=== PATIENT | female | born 1955 | race Caucasian/White ===

== ENCOUNTER → 2017-12-14 11:58 | Outpatient (CLI) | payer OTHER, SELFPAY ==
--- NOTE | 2017-12-14 12:04 | BI_ITS ---
MAMMOGRAPHY - BILATERAL SCREENING 3-D CARLOS SYNTHESIS REASON FOR EXAM: Female, 62 years old. Bilateral Screening 3-D tomosynthesis PERTINENT HISTORY: Aunt with breast cancer.. TECHNIQUE: 2-D mammograms and 3-D Carlos synthesis of the breast (s) were performed. CAD was performed. COMPARISON: 03/16/2016 FINDINGS: The breast composition is composed of scattered fibroglandular density. Scattered benign calcifications are seen. No dense spiculated masses or suspicious microcalcifications are identified. No architectural distortion is identified. There is no skin thickening or retraction. There has been no significant change since the prior study. BI/SCREENING MAMM (CAD), BILAT IMPRESSION: No mammographic signs of malignancy. Routine yearly mammograms recommended. ASSESSMENT CATEGORY: BIRADS Category 1: Negative. A letter regarding these results will be sent to the patient by the facility within 30 days. FOLLOW UP RECOMMENDATION: Yearly follow up mammogram recommended. (A) Approximately 10% of breast cancers are not detected by mammography. A normal mammogram should not delay biopsy of a clinically suspicious abnormality. Electronically Signed: Herb Isabel MD at 14:19 EDT , Service support ,
== END ==
PROVIDERS: Family Provider Nurse Practitioner; PCP Nurse Practitioner; Visit Provider Obstetrics & Gynecology
DX: Z12.31 Encounter for screening mammogram for malignant neoplasm of breast (principal)
CPT/HCPCS: 77063; 77067

== ENCOUNTER → 2018-03-12 16:08 | Outpatient (CLI) | payer OTHER, SELFPAY | PROVIDERS: Referring Provider Physician Assistant; Visit Provider Physician Assistant | DX: L08.9 Local infection of the skin and subcutaneous tissue, unspecified (principal); L72.0 Epidermal cyst; L40.0 Psoriasis vulgaris | CPT/HCPCS: 87070; 87077; 87186; 87205 ==

== ENCOUNTER 2018-08-07 12:06 | Day surgery (SDC) | payer OTHER, SELFPAY ==
--- NOTE | 2018-08-01 10:23 | EKG12_ITS ---
Test Reason : PREOP Blood Pressure : / mmHG Vent. Rate : 058 BPM Atrial Rate : 058 BPM P-R Int : 168 ms QRS Dur : 084 ms QT Int : 436 ms P-R-T Axes : 044 035 037 degrees QTc Int : 428 ms Sinus bradycardia Otherwise normal ECG Confirmed by DERECK JIMENEZ, YARELI ([id number]), online content editor ENRIQUETA FALK ([id number]) on 08/02/2018 8:35:18 AM Referred By: Alma Fournier Confirmed By:YARELI HARDEN MD
[2018-08-01 10:29] LABS: Hematocrit 44.5 % (37-47); Mean Corp Hgb Conc 31.5 g/gl (32-36); Mean Corpuscular Volume 85.7 fL (81-99); Mean Platelet Vol. 8.8 fl (6.2-12.0); Platelet Count 215 K/mm3 (150-450); RBC Distribution Width CV 15.7 % (11.6-14.6); RBC Distribution Width SD 49.9 fl (35.1-43.9); Red Blood Count 5.19 M/mm3 (4.2-5.4); White Blood Count 5.1 K/mm3 (4.4-11.0)
[2018-08-01 10:30] LABS: Scan Indicated on CBC? Y/N NO
[2018-08-01 10:36] LABS: Prothrombin Time (Protime)PT. 12.7 SECONDS (11.7-14.9)
[2018-08-01 10:37] LABS: Partial Thromboplast Time 28.1 Seconds (24.1-36.2)
[2018-08-01 11:10] LABS: AST(SGOT) 23 U/L (15-37); Alanine Aminotransfer ALT/SGPT 26 U/L (13-56); Albumin, Serum 3.8 g/dL (3.2-5.0); Alkaline Phosphatase 87 U/L (45-117); Anion Gap 5 (5-15); BUN 13 mg/dL (7-18); BUN/Creat Ratio 14.1 RATIO (10-20); Bilirubin, Direct 0.15 mg/dL (0.00-0.30); Calcium,Total 8.7 mg/dL (8.5-10.1); Chloride 106 mmol/L (98-107); Creatinine, Serum 0.92 mg/dL (0.55-1.02); EST Glomerular Filtration Rate 65 mL/min (>60); Est Glom Filt Rate - Afr Amer 79 mL/min (>60); Globulin 3.6 g/dL (2.2-4.2); Glucose 99 mg/dL (74-106); Potassium 4.1 mmol/L (3.5-5.1); Protein, Total 7.4 g/dL (6.4-8.2); Sodium Level 141 mmol/L (136-145)
--- NOTE | 2018-08-02 04:52 | HP.PCM_ITS ---
History and Physical Date of Admission: 08/07/18 Name: SVETLANA JHAVERI Age: 62 Date of : 1955 PREOPERATIVE HISTORY AND PHYSICAL: On 08/01/2018, Svetlana Jhaveri, a 62 year old female 3 0 5 0 3, presented for: -- Pre-Op Svetlana is here today for her pre op appointment. Patient is scheduled for LAVH/BSO posterior repair 08/07/2018. Patient had PAT phone call from [facility] this morning prior to appointment in this office. Consents reviewed with patient and signed. Here for preop appt : planned LAVH, BSO. posterior repair and possible anterior repair. She has been on HRT and had some bleeding after forgetting to take pill. Prior EMB: Simple hyperplasia without atypia at D and C done in 2018 She has a rectocele. Minimal uterine prolapse. Prior h/o stable ovarian vs paratubal cyst. Has questions about HRT after surgery , whether to continue estradiol vs discontinue this medication. Reviewed options. States recent trial and discontinuation of Otezla for her psoriasis, due to allergic reaction. EB ALLERGIES: Otezla and Rash MEDICATIONS HISTORY: Current medications prescribed by our practice are: 1. clobetasol 0.05 % shampoo, Apply thinly to affected area daily as directed 2. estradiol 0.5 mg tablet, 1 PO QD 4. Prometrium 200 mg capsule, 1 po daily Patient is also takin. clobetasol 0.05 % topical cream, As Directed 2. Zantac 150 mg tablet, daily PAST HISTORY: Breast/Ovarian/Colon Cancers - aunt breast ca, cousins ovarian ca, daughter ovarian Infections - none Illnesses - no serious past illnesses Accidents - no injuries of consequence History of Abnormal PAPS - Denies Hospitalizations - see surgery Shingles; SURGICAL HISTORY: 1. 07/07/[address]Dan Orellana 2. 07/07/2003 laparoscopic BTO Alma Fournier M.D. 3. Tonsillectomy and adenoids at age 38 4. Laparoscopy, lap 5. 03/07/2017 Hysteroscopy, D and C Alma Fournier M.D. 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 Rectocele 2. Endometrial Hyperplasia, Unspecified 3. Postmenopausal Bleeding 4. Hormone Replacement Therapy (postmenopausal) 5. Unspecified Ovarian Cyst, Left Side PLAN BY DIAGNOSIS: 1. Postmenopausal Bleeding Prior PATH: simple hyperplasia without atypia. Advised of small chance of progression to endometrial cancer with no atypia and only simple hyperplasia, dose of Prometrium increased. Additional bleed after forgetting pill Prefers now to proceed with hysterectomy and BSO. R,B,A of MICHAEL DEL REAL reviewed. All questions answered to her satsfaction. Consents signed and on chart. Reviewed anticipated preop, operative and postop recovery including activity restrictions. RTO in 2 wk for postop follow up appt. The visit was approximately 20 minutes in length with most of the time spent in discussion and counseling. 2. Unspecified Ovarian Cyst, Left Side Simple appearing follicle/cyst noted at L ovary. No free fluid CT done 11/30/16 through ED when Svetlana had dx of shingles showed: 2.3 cm L adnexal cyst then also. Stable finding. Plans BSO. 3. Hormone Replacement Therapy (postmenopausal) After hysterectomy, may elect to stop HRT. If prefers to continue, recommend estradiol only as no progesterone needed Will consider options further. Discussed wean off ERT Estradiol 0.5 mg daily and if no recurrence in symptoms, discontinue med 4. Rectocele Redundancy of vaginal fong on exam. Plans posterior repair. Possible anterior repair to be determined at time of surgery Reviewed R,B,alternatives of posterior repair (possible anterior repair)
[2018-08-07] VITALS (14 sets, daily range): BP systolic 94–136; BP diastolic 51–75; PULSE 48–88; RESP 14–18; TEMP 35.8–37.5; O2SAT 93–100; BMI 37.5
--- NOTE | 2018-08-07 13:36 | PCM.DC.VHY ---
Discharge Diet: No Restrictions Discharge Activity: May not drive while taking narcotic pain medications., May Shower, May Take a Tub Bath Return to work on:: 09/23/18 May resume sexual activity in: 4-6 weeks Lifting Restrictions: Limit to 20 lbs or less for 4 - 6 wk to allow healing Call your doctor if you observe: Fever of 101 or Higher, Using more than one pad per hour, Chest pain, Calf discomfort, Uncontrolled pain Change Dressing in (Days):: 7 Remove Dressing in (days):: 7 Cleanse incision/area with: Soap & Water, Keep Dressing Clean & Dry Allergies/Adverse Reactions: Allergies apremilast [From Otezla] Allergy (Verified 08/01/18 08:35) Rash Medications to take at Discharge Estradiol [Estrace] 0.5 mg PO DAILY 11/30/14 Ranitidine [Zantac] 150 mg PO DAILY PRN 12/03/14 Cholecalciferol (VIT D3) [Vitamin D3] 5,000 unit PO DAILY 02/28/17 Aspirin [Aspirin, Baby] 81 mg PO DAILY@0800 08/01/18 Docusate Sodium [Colace] 100 mg PO BID #30 capsule 08/07/18 Naproxen [Naprosyn] 250 - 500 mg PO TID PRN PRN #30 tablet 08/07/18 Oxycodone [Oxyir] 5 - 10 mg PO Q6H PRN PRN 7 Days #20 tablet 08/07/18 Polyethylene Glycol 3350 [Miralax] 17 gm PO DAILY PRN #14 packet 08/07/18 The following prescriptions were given: Oxycodone [Oxyir] 5 - 10 mg PO Q6H PRN PRN 7 Days #20 tablet PRN Reason: Mod-Severe Pain (4-10/10) Naproxen [Naprosyn] 250 - 500 mg PO TID PRN PRN #30 tablet PRN Reason: Mild-Mod Pain (1-5/10) Polyethylene Glycol 3350 [Miralax] 17 gm PO DAILY PRN #14 packet PRN Reason: Constipation Docusate Sodium [Colace] 100 mg PO BID #30 capsule Orders to be completed after discharge: Type & Screen Time Frame: 08/01/18, Facility: [facility], Location: Laboratory 12 Lead EKG [CVS] Time Frame: 08/01/18, Facility: [facility], Location: Cardiovascular Services Partial Thromboplast Time Time Frame: 08/01/18, Location: Laboratory Basic Metabolic Profile (BMP) Time Frame: 08/01/18, Location: Laboratory CBC-Complete Blood Cnt No Diff Time Frame: 08/01/18, Location: Laboratory Liver Profile Time Frame: 08/01/18, Location: Laboratory Prothrombin Time w/INR Time Frame: 08/01/18, Location: Laboratory Primary Care Physician: Kristan Soni NP-C [Primary Care Provider] - Test Results: Test results from this visit will be discussed in further detail at your follow-up appointment, if applicable. Please Follow Up With: Alma Fournier MD - [phone] When: in 2 wk for postop appointment
--- NOTE | 2018-08-07 13:42 | DCINST_ITS ---
Discharge Diet: No Restrictions Discharge Activity: May not drive while taking narcotic pain medications., May Shower, May Take a Tub Bath Return to work on:: 09/23/18 May resume sexual activity in: 4-6 weeks Lifting Restrictions: Limit to 20 lbs or less for 4 - 6 wk to allow healing Call your doctor if you observe: Fever of 101 or Higher, Using more than one pad per hour, Chest pain, Calf discomfort, Uncontrolled pain Change Dressing in (Days):: 7 Remove Dressing in (days):: 7 Cleanse incision/area with: Soap & Water, Keep Dressing Clean & Dry Allergies/Adverse Reactions: Allergies apremilast [From Otezla] Allergy (Verified 08/01/18 08:35) Rash Medications to take at Discharge Estradiol [Estrace] 0.5 mg PO DAILY 11/30/14 Ranitidine [Zantac] 150 mg PO DAILY PRN 12/03/14 Cholecalciferol (VIT D3) [Vitamin D3] 5,000 unit PO DAILY 02/28/17 Aspirin [Aspirin, Baby] 81 mg PO DAILY@0800 08/01/18 Docusate Sodium [Colace] 100 mg PO BID #30 capsule 08/07/18 Naproxen [Naprosyn] 250 - 500 mg PO TID PRN PRN #30 tablet 08/07/18 Oxycodone [Oxyir] 5 - 10 mg PO Q6H PRN PRN 7 Days #20 tablet 08/07/18 Polyethylene Glycol 3350 [Miralax] 17 gm PO DAILY PRN #14 packet 08/07/18 The following prescriptions were given: Oxycodone [Oxyir] 5 - 10 mg PO Q6H PRN PRN 7 Days #20 tablet PRN Reason: Mod-Severe Pain (4-10/10) Naproxen [Naprosyn] 250 - 500 mg PO TID PRN PRN #30 tablet PRN Reason: Mild-Mod Pain (1-5/10) Polyethylene Glycol 3350 [Miralax] 17 gm PO DAILY PRN #14 packet PRN Reason: Constipation Docusate Sodium [Colace] 100 mg PO BID #30 capsule Orders to be completed after discharge: Type & Screen Time Frame: 08/01/18, Facility: [facility], Location: Laboratory 12 Lead EKG [CVS] Time Frame: 08/01/18, Facility: [facility], Location: Cardiovascular Services Partial Thromboplast Time Time Frame: 08/01/18, Location: Laboratory Basic Metabolic Profile (BMP) Time Frame: 08/01/18, Location: Laboratory CBC-Complete Blood Cnt No Diff Time Frame: 08/01/18, Location: Laboratory Liver Profile Time Frame: 08/01/18, Location: Laboratory Prothrombin Time w/INR Time Frame: 08/01/18, Location: Laboratory Primary Care Physician: Kristan Soni NP-C [Primary Care Provider] - Test Results: Test results from this visit will be discussed in further detail at your follow- up appointment, if applicable. Please Follow Up With: Alma Fournier MD - [phone] When: in 2 wk for postop appointment
--- NOTE | 2018-08-07 13:51 | PCM.OPRPT ---
Report of Operation Date of Procedure: 08/07/18 Pre-Operative Diagnosis: Postmenopausal bleeding. Persistent (stable adnexal cyst). Rectocele Post-Operative Diagnosis: Same Surgery/Procedure Performed:: LAVH, BSO, posterior repair Description of Surgical Findings:: Urine output: 130 cc Irrigation: 400 cc Findings: On exam under anesthesia, the cervix appears well supported, minimal descensus. A large rectocele was noted, prolapsing through the introitus. At Laparoscopy: the uterus is normal appearing. There are normal appearing fallopian tubes and ovaries bilaterally. Gross inspection of the bowel , omentum and liver edge are WNL. PATH: Uterus, bilateral fallopian tubes and ovaries, and strips of vaginal epithelium. Narrative account: After the risks, benefits and alternatives of the procedure were reviewed with the patient , informed consent was obtained. The patient was taken to the Operating room with an IV running . She was positioned in the dorsal supine position on the operating table and given general anesthesia. Once asleep she was positioned to the dorsal lithotomy position with the arms tucked at the sides and prepped and draped in the usual sterile fashion. A Horne catheter was inserted to drain the bladder. The weighted speculum was placed into the vagina and a single tooth tenaculum was placed at the cervix. A Taryn cannula was inserted into the cervix and secured into placed with the single - toothed tenaculum. Attention was then turned to the anterior abdominal wall. the treadle cut off saw operator's gloved were changed and skin incisions were created at the infraumbilical and suprapubic skin and at a point approximately [facility] between the suprapubic and infraumbilical skin incisions. Local anesthesia was used to infiltrate the skin where the trocar incision sites were created. A vertical 5 mm infraumbilical skin incision , a transverse 5 mm suprapubic incision and an transverse 5 mm midline incision were created. A Veress needle was inserted in to the peritoneal cavity at the infraumbilical skin incision while maintaining upward traction of the anterior abdominal wall at the umbilicus. There was free drop of saline, free flow of CO2 and low opening pressure noted. Once the intraabdominal pressure had reached approximately 15 mm HG, the Veress needle was removed and a bladeless 5 mm trocar was inserted into the peritoneal cavity. Correct placement was confirmed using the laparoscope. Under direct visualization the other two 5 mm bladeless trocars were inserted into the peritoneal cavity. The fallopian tubes and ovaries were retracted medially and using a LigaSure device the infundibulopelvic ligament was divided at each side of the uterus. The broad ligament was then divided down to the level of the round ligament on both sides. At this point the laparoscopic portion of the case was completed. The trocars were left in place, but the instruments were removed and gas turned off. A sterile drape was used to cover the abdomen. Attention was then turned to the vaginal portion of the case. The Taryn cannula was removed and the single toothed tenaculum repositioned on the cervix. The cervical mucosal was then incised circumferentially using a knife while retracting the large rectocele. Neither the anterior or posterior cul de sac was immediately entered. A curved Cydney clamp was applied at both sides for hemostasis. The pedicles were secured, divided and suture ligated and tagged for later identification. Dissection then was initiated at the anterior cervix to enter the anterior cul se sac. The posterior cul de sac was entered eventually by sharp dissection with Eden scissors and a weighted speculum was placed into the posterior cul se sac. The uterosacral ligaments were clamped bilaterally with curved Cydney clamps and the pedicles divided and suture ligated and tagged (along with the first tagged pedicles into hemostats present) for later identification. The anterior cul de sac peritoneum was then entered by sharp dissection and a narrow Fauzia retractor was placed into the anterior cul de sac to retract the bladder out of harm's way for the remainder of the case. Next the cardinal ligament was clamped bilaterally and divided and suture ligated. Adequate hemostasis of the pedicles were noted. The uterine arteries were clamped bilaterally , divided and suture ligated. There was continued bleeding noted (of the cuff both anterior and posterior). Dissection then continued along each side of the uterus maintaining close approximation to the uterus. Each pedicle was secured with a Cdyney clamp, divided and suture ligated until ultimately the uterine fundus was reached. The superior pedicles on each side were secured with a curved Cydney clamp and the uterus with attached fallopian tubes and ovaries was surgically amputated and set aside. The superior pedicle was then suture ligated, then free tied and tagged for identification. The superior pedicles were dry. There was bleeding noted along the posterior vaginal cuff . The posterior vaginal cuff was run, reapproximating the peritoneum and posterior vaginal epithelium with a running locked suture of 1-0 Vicryl. Hemostasis improved. Several areas along the vaginal cuff were overseen with figure of with stitches of 1-0 Vicryl. There was still bleeding noted. The peritoneum was then closed with a running purse string suture of 1 Vicryl, incorporating the superior pedicles and uterosacral ligament tags. The tags appeared dry and the bleeding appeared to be external to the closed peritoneum. The vaginal cuff was then reapproximated using interrupted and figure of eight stitches of 1 Vicryl. Excellent hemostasis was noted at the vaginal cuff. At this point, Dr Andrew had been called to assist due to persistent bleeding present during the vaginal cuff closure and given the EBL consideration was given to potentially having to proceed to laparotomy. A second look laparoscopy was being performed as Dr. Andrew arrived and scrubbed in: excellent hemostasis was noted at all pedicles and at the vaginal cuff. The pelvis and abdomen were irrigated with approximately 400 cc of normal saline. Olvin was sprayed along the cuff and pedicles for additional hemostasis. Excellent hemostasis was noted . The pneumoperitoneum was reduced and all instruments and trocars were removed. The skin incisions were closed with 4-0 Monocryl in a subcuticular fashion. Sterile dressings were applied. (Dermabond and op sites). After hemostasis was assured. The posterior repair was then performed. A triangular piece of tissue was excised at the posterior vagina / perineal body and the posterior vaginal longitudinal incision was then created using Metzenbaum scissors. The linear incision was carried from the posterior introitus to approx 1 cm from the vaginal cuff repair. The vaginal epithelium was then dissected from the underlying rectovaginal septum. Lesly plication stitches of 1-0 Vicryl were then placed reducing the rectocele. The posterior vaginal mucosa was trimmed and the linear incision closed with 2-0 chromic in a running locked fashion. Vaginal packing was then inserted: 1 iodoform gauze Excellent hemostasis was noted. The Horne was attached to the Horne bag and clear yellow urine returned. The patient was returned to dorsal supine position and awakened from general anesthesia. She was then transferred to the recovery room bed in stable condition after tolerating the procedure well. Sponge, lap, needle and instrument counts correct times two. Medications given preop and intraoperatively included: Cefotetan 2 gm IV was given community relations rep to the operating room , 10 cc of 1/2 % Marcaine with epinephrine was used as a subcutaneous injection at the trocar skin incision sites, and Toradol 30 mg IV x one was given. For a complete listing of medications given preop and intraoperatively, please see the anesthesia record. manager practice: [facility]aud[facility] - Kenia Harding RN manager practice: Kell Mora manager practice: Sheryl Parsons Type of Anesthesia:: General - and Dr. Jacobs Anesthesiologist: Beto Naranjo Specimen's removed: Uterus, cervix, Bilateral fallopian tubes and ovaries. Vaginal epithelium Drains: Horne Estimated Blood Loss (mL): 1120 Fluids Replaced: LR - Complications none - Admit VTE Documentation VTE Present on Admission: No VTE Mechan Device Prophylaxis: SCD's VTE Pharm Prophylaxis ordered?: Yes
--- NOTE | 2018-08-07 14:00 | HYST_PTH ---
PATIENT: BEULAH NICHOLS [place] [facility] [id number] AGE/SX: 62/F ROOM: RE08/07/[address]: Dr. Alma Fournier MD : [id number] BED: DIS: 08/08/2018 SPEC #: [id number] RECD: 08/07/18 16:49 STATUS: DOM RECelina #: [id number] NANCY: 08/07/18 14:[address]: Alma Fournier DEPT: SURGICAL PATHOLOGY RECD BY: Sidney Nichols ENTERED: 08/08/18 10:22 SP TYPE: HYSTERECT OTHR DR: Kristan Soni, WOOL HAT FORMING MACHINE TENDER-C Tissues: Uterus, NOS Procedures: Surgery Specimen Level II Surgery Specimen Level V HEADER OPERATION: Laparoscopic assisted vaginal hysterectomy, bilateral salpingectomy PRE-OP DIAGNOSIS: Rectocele; endometrial hyperplasia; postmenopausal bleeding; hormone replacement therapy (postmenopausal); left ovarian cyst TISSUE SUBMITTED: Uterus, bilateral fallopian tubes and ovaries and vaginal mucosa MICROSCOPIC DIAGNOSIS Uterus, hysterectomy: Cervix - nabothian cysts, squamous metaplasia and mild chronic inflammation. Endometrium - simple hyperplasia without atypia. Myometrium - extensive adenomyosis. Right ovary - corpora albicantia. Right fallopian tube - no significant pathologic change. 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 Left fallopian tube - no significant pathologic change. Vaginal mucosa, repair: Mild chronic inflammation. AM:nita 08/09/18 COMMENT Case has been reviewed in consultation with Dr. Daniels who concurs with the above diagnosis. IDC:SJ MICROSCOPIC DESCRIPTION Slides are reviewed. GROSS DESCRIPTION Received in fixative is one container labeled with the patient's name and designated uterus, bilateral tubes, ovary and vaginal mucosa. The specimen consists of a hysterectomy specimen consisting of uterus with cervix, attached bilateral fallopian tubes and ovary and detached pieces of mucosal tissue. The uterus with cervix weighs 95 gm and measures 11 x 6 x 4 cm. The serosal surface is cowart, glistening. The ectocervical mucosa is focally congested. The external os is oval in contour. The endocervical canal measures 4 cm in length and the endocervical mucosa is cowart, glistening and unremarkable. Sections of cervix reveal two cysts filled with mucoid material. The triangular endometrial cavity measures 5.5 cm in length and up to 2 cm in width. The endometrium is cowart, glistening without any mass lesion and measures <0.1 cm in thickness. Sections of the myometrial wall do not reveal any mass lesion and it measures up to 2 cm in thickness. Sections of the myometrial wall reveal focal trabeculated cut surface suspicious for adenomyosis. The right fallopian tube measures 6 cm in length and 0.5 cm in diameter. The fimbrial end is identified. The fallopian tube shows a Filshie clip in the middle portion which appears intact consistent with previous tubal ligation. Sections reveal unremarkable cut surfaces. The right ovary measures 2.2 x 1.5 x 0.8 cm. Sections reveal unremarkable cut surfaces. No tubo-ovarian adhesions are identified. The left fallopian tube is similar appearance to right and measures 5 cm in length and 0.5 cm in diameter. A Filshie clip is also noted in the middle consistent with previous tubal occlusion. The soft to cystic left ovary measures 4 x 2.5 x 2.5 cm. Sections reveal a cyst filled with clear fluid measuring 2.5 cm in greatest dimension. The cyst wall is smooth without any papillation and measures <0.1 cm in greatest dimension. Also present in the container are two pieces of cowart mucosal tissue measuring in aggregate 6 x 3.5 x 0.5 cm. No mucosal lesion is identified. Instrumentation martinez are noted. Assistant Store Manager Trainee sections are submitted in ten cassettes as follows: 1 - anterior cervix, 2 - posterior cervix, 3 & 4 - anterior uterine wall, 5 & 6 - posterior uterine wall, 7 - right fallopian tube and ovary, 8 - left fallopian tube and ovary, 9 - left ovary, cyst, 10 - mucosal tissue. / CHACORTA:nita 08/08/18 TC:5 CPT: 25277, [id number]
[2018-08-07] MEDS: Bupiv/Epi 0.5% Mpf 30 ML Vial (14:05)
[2018-08-07] MEDS: Lactated Ringers 1,000 ML 125 ML IV ×2 (17:52→23:47)
[2018-08-07] MEDS: 0.9% NaCl Peripheral Flush Adult/Peds IV ×2 (17:55→20:36)
[2018-08-07 18:16] LABS: Hemoglobin 11.7 g/dl (12.0-15.0)
[2018-08-07] MEDS: Ketorolac 30 MG/ML Syringe IV (20:36)
[2018-08-07] MEDS: Docusate Sodium 100 MG Capsule PO (21:00)
[2018-08-07 21:52] LABS: Absolute Lymphocyte Count 1.23 X10^3/ul (0.83-4.51); Basophil# 0.01 X10^3/uL; Basophil% 0.1 % (0-1); Eosinophil# 0.01 X10^3/uL; Eosinophils% 0.1 % (0-5); Hematocrit 35.7 % (37-47); Hemoglobin 11.3 g/dl (12.0-15.0); Lymphocyte # 1.23 X10^3/ul (4.0); Lymphocyte % 10.5 % (19-41); Mean Corp Hgb Conc 31.7 g/gl (32-36); Mean Corpuscular Hgb 27.4 pg (27.0-32.0); Mean Corpuscular Volume 86.4 fL (81-99); Mean Platelet Vol. 9.3 fl (6.2-12.0); Monocyte# 0.52 X10^3/uL; Monocyte% 4.4 % (0-10); Neutrophil # 9.95 X10^3/uL (2.7-7.7); Neutrophil % 84.8 % (47-70); Platelet Count 228 K/mm3 (150-450); RBC Distribution Width CV 15.4 % (11.6-14.6); RBC Distribution Width SD 47.9 fl (35.1-43.9); Red Blood Count 4.13 M/mm3 (4.2-5.4); White Blood Count 11.7 K/mm3 (4.4-11.0)
[2018-08-07 21:53] LABS: POSITIVE COUNT NO; POSITIVE DIFFERENTIAL NO; POSITIVE MORPHOLOGY NO
[2018-08-08 02:48] VITALS: BP 111/57; PULSE 67; RESP 16; TEMP 36.3; O2SAT 98
[2018-08-08] MEDS: Ketorolac 30 MG/ML Syringe IV ×2 (02:51→08:06)
[2018-08-08] MEDS: 0.9% NaCl Peripheral Flush Adult/Peds IV (02:51)
[2018-08-08] MEDS: Lactated Ringers 500 ML 999 ML IV (03:15)
[2018-08-08 06:40] LABS: Hematocrit 30.1 % (37-47); Hemoglobin 9.4 g/dl (12.0-15.0); Mean Corp Hgb Conc 31.2 g/gl (32-36); Mean Corpuscular Hgb 27.2 pg (27.0-32.0); Mean Corpuscular Volume 87.2 fL (81-99); Mean Platelet Vol. 9.3 fl (6.2-12.0); Platelet Count 226 K/mm3 (150-450); RBC Distribution Width CV 15.5 % (11.6-14.6); RBC Distribution Width SD 48.1 fl (35.1-43.9); Red Blood Count 3.45 M/mm3 (4.2-5.4); White Blood Count 7.6 K/mm3 (4.4-11.0)
[2018-08-08 06:41] LABS: Scan Indicated on CBC? Y/N NO
[2018-08-08 06:47] LABS: Creatinine, Serum 0.86 mg/dL (0.55-1.02); EST Glomerular Filtration Rate 71 mL/min (>60); Est Glom Filt Rate - Afr Amer 86 mL/min (>60); Estimated Creatinine Clearance 67.54 ml/min
[2018-08-08 07:21] VITALS: O2SAT 93
[2018-08-08 08:00] VITALS: BP 122/61; PULSE 61; RESP 16; TEMP 36.2; O2SAT 100
[2018-08-08] MEDS: Estradiol 1 MG Tablet 0.5 MG PO (08:07)
[2018-08-08] MEDS: Aspirin 81 MG TAB.CHEW PO (08:07)
[2018-08-08] MEDS: Docusate Sodium 100 MG Capsule PO (08:08)
[2018-08-08] MEDS: Enoxaparin 40 MG/0.4 ML Syringe SC (08:08)
[2018-08-08] MEDS: Polyethylene Glycol 3350 17 GM PACKET PO (08:08)
--- NOTE | 2018-08-08 08:11 | PN_ITS ---
Subjective: POD#1 GT, BSO. Posterior repair Doing well Horne out and would like to try to void. Walking around unit well this am. Tolerated regular diet. Minimal pain 2/10 pain scale and more off to the R side. Objective: Sitting up in bed, breakfast tray on table. - Physical Exam General: Alert, Oriented x3, Cooperative, No apparent distress HEENT: Atraumatic Neck: Supple Abdomen: Soft - L/S incisions CDI., - - vaginal packing removed, minimal old drainage noted on packing. Peripad with minimal dischg. Skin: No rashes, Incision - L/S incisions CDI. Psych/Mental Status: Normal Affect Vital Signs Temp Pulse Resp BP Pulse Ox 97.3 F L 67 16 111/57 L 93 08/08/18 02:48 08/08/18 02:48 08/08/18 02:48 08/08/18 02:48 08/08/18 07:21 Oxygen Flow Rate (L/min) 2 Oxygen Delivery Method Nasal Cannula Weight: 112 kg Body Mass Index (BMI) 37.5 Intake and Output for Last 24 Hours 08/06/18 08/07/18 08/08/18 23:59 23:59 23:59 Intake Total 4790 / 4790 1530 / 1530 Output Total 455 / 455 450 / 450 Balance 4335 / 4335 1080 / 1080 Laboratory Tests Past 24 Hrs 08/01/18 08/07/18 08/07/18 10:15 18:10 21:36 WBC 11.7 H RBC 4.13 L Hgb 11.7 L 11.3 L Hct 38.0 35.7 L MCV 86.4 MCH 27.4 MCHC 31.7 L RDW 15.4 H RDW Differential 47.9 H Plt Count 228 MPV 9.3 Immature Gran % (Auto) 0.100 Neut % (Auto) 84.8 H Lymph % (Auto) 10.5 L [place] % (Auto) 4.4 Eos % (Auto) 0.1 Baso % (Auto) 0.1 Absolute Neuts (auto) 10.0 H Absolute Lymphs (auto) 1.23 Total Counted Not Reportable Creatinine Estim Creat Clear Calc Est GFR (MDRD) Af Amer Est GFR (MDRD) Non-Af Blood Type Cancelled A1 Antigen Typing Cancelled Rho(D) Type Cancelled Antibody Screen Cancelled Crossmatch See Detail 08/08/18 08/08/18 06:00 06:00 WBC 7.6 RBC 3.45 L Hgb 9.4 L Hct 30.1 L MCV 87.2 MCH 27.2 MCHC 31.2 L RDW 15.5 H RDW Differential 48.1 H Plt Count 226 MPV 9.3 Immature Gran % (Auto) Neut % (Auto) Lymph % (Auto) [place] % (Auto) Eos % (Auto) Baso % (Auto) Absolute Neuts (auto) Absolute Lymphs (auto) Total Counted Creatinine 0.86 Estim Creat Clear Calc 67.54 Est GFR (MDRD) Af Amer 86 Est GFR (MDRD) Non-Af 71 Blood Type A1 Antigen Typing Rho(D) Type Antibody Screen Crossmatch Medical Necessity - Tobacco Use Smoking Status: Never smoker Tobacco Use: Non-smoker Assessment/Plan POD#! LAVH, BSO. Posterior repair (no perineorrhaphy) Stable postop. VSS Tolerating regular diet. Ambulating well. NAD. Pain control adequate with IV Toradol. Begin po Ibuprofen. Horne discontinued for voiding trial. Likely dischg later today, when criteria met. 1.) Acute blood loss anemia. Hgb as anticipated with acute blood loss at surgery, and IV hydration. Encouraged reg diet. May supplement with daily iron or just eat iron rich foods.
[2018-08-08 11:00] VITALS: BP 122/61; PULSE 61; RESP 16; TEMP 36.2; O2SAT 100
[2018-08-08] MEDS: Famotidine 20 MG Tablet PO (11:01)
== END 2018-08-08 11:20 | disposition home or self-care (01) ==
LOC: SDC 12:06 → AC 12:10 → MS3 13:20
PROVIDERS: Anesthesiology; Family Provider Nurse Practitioner; PCP Nurse Practitioner; Referring Provider Obstetrics & Gynecology; Visit Provider Obstetrics & Gynecology
PROC: 0UT9FZZ Resection of Uterus, Via Natural or Artificial Opening With Percutaneous Endoscopic Assistance (ICD-10-PCS; CPT 57250; principal; 2018-08-07 13:35)
DX: N95.0 Postmenopausal bleeding (principal); D27.1 Benign neoplasm of left ovary; D62 Acute posthemorrhagic anemia; N81.4 Uterovaginal prolapse, unspecified; N85.01 Benign endometrial hyperplasia; N83.291 Other ovarian cyst, right side; Z85.828 Personal history of other malignant neoplasm of skin; Z79.899 Other long term (current) drug therapy; Z79.82 Long term (current) use of aspirin; R00.1 Bradycardia, unspecified; H91.92 Unspecified hearing loss, left ear; L40.9 Psoriasis, unspecified; Z79.890 Hormone replacement therapy
CPT/HCPCS: 57250; 58552; 36415; 80048; 80076; 82565; 85014; 85018; 85025; 85027; 85610; 85730; 86850; 86900; 86920; 88302; 88307; 93005; J7120; A4216; J2405

== ENCOUNTER → 2018-12-18 | Outpatient (CLI) | payer OTHER, SELFPAY ==
[2018-08-07 18:59] VITALS: BMI 37.5
[2018-12-18 12:28] LABS: Absolute Lymphocyte Count 1.74 X10^3/uL (0.83-4.51); Absolute Neutrophil Count 2.5 X10^3/uL (2.0-7.7); Basophil# 0.02 X10^3/uL; Basophil% 0.4 % (0-1); Eosinophil# 0.18 X10^3/uL; Eosinophils% 3.7 % (0-5); Hematocrit 42.3 % (37-47); Hemoglobin 13.3 g/dL (12.0-15.0); Lymphocyte # 1.74 X10^3/ul (4.0); Lymphocyte % 36.2 % (19-41); Mean Corp Hgb Conc 31.4 g/dL (32-36); Mean Corpuscular Volume 79.4 fL (81-99); Mean Platelet Vol. 9.2 fl (6.2-12.0); Monocyte# 0.36 X10^3/uL; Monocyte% 7.5 % (0-10); NRBC Flagged by Analyzer 0 % (0-5); Platelet Count 259 K/mm3 (150-450); RBC Distribution Width SD 50.5 fl (35.1-43.9); Red Blood Count 5.33 M/mm3 (4.2-5.4); White Blood Count 4.8 K/mm3 (4.4-11.0)
[2018-12-18 12:46] LABS: ALB/GLOB Ratio 1.1 RATIO (0.9-2.4); AST(SGOT) 16 U/L (15-37); Alanine Aminotransfer ALT/SGPT 21 U/L (13-56); Albumin, Serum 3.5 g/dL (3.2-5.0); Alkaline Phosphatase 100 U/L (45-117); Anion Gap 9 (5-15); BUN 15 mg/dL (7-18); BUN/Creat Ratio 16.9 RATIO (10-20); Calcium,Total 8.6 mg/dL (8.5-10.1); Chloride 107 mmol/L (98-107); Creatinine, Serum 0.89 mg/dL (0.55-1.02); EST Glomerular Filtration Rate 68 mL/min (>60); Est Glom Filt Rate - Afr Amer 83 mL/min (>60); Globulin 3.2 g/dL (2.2-4.2); Glucose 91 mg/dL (74-106); Potassium 4.4 mmol/L (3.5-5.1); Protein, Total 6.7 g/dL (6.4-8.2); Sodium Level 141 mmol/L (136-145)
[2018-12-18 13:43] LABS: HIV - WCH Non-Reactive (Nonreactive)
[2018-12-21 03:06] LABS: HEPATITIS B SURFACE AG Negative (Negative); Hepatitis A AB, Total Negative (Negative); Hepatitis A IgM Antibody Negative (Negative); Hepatitis B Core AB IgM Negative (Negative); Hepatitis B Core Ab Total Negative (Negative); Hepatitis C Ab <0.1 s/co ratio (0.0-0.9); QNTFERON TB Mitogen Value > 10.00 IU/mL (.); QNTFERON TB Nil Value 0.02 IU/mL (.); QNTFERON TB1+ Ag Value 0.04 IU/mL (.); QNTFERON TB2+ Ag Value 0.03 IU/mL (.)
[2018-12-23 08:20] LABS: Hep B Surface Antibodies Non Reactive (.); QNTIFERON TB Positive Criteria Negative (Negative)
== END | disposition home or self-care (01) ==
LOC: MTLAB 09:58
PROVIDERS: Family Provider Nurse Practitioner; PCP Nurse Practitioner; Referring Provider Nurse Practitioner Family; Visit Provider Nurse Practitioner Family
DX: L40.0 Psoriasis vulgaris (principal); Z79.899 Other long term (current) drug therapy
CPT/HCPCS: 36415; 80053; 85025; 86480; 86703; 86704; 86705; 86706; 86708; 86709; 86803; 87340

== ENCOUNTER → 2019-02-14 10:07 | Outpatient (CLI) | payer OTHER, SELFPAY ==
[2018-08-07 18:59] VITALS: BMI 37.5
--- NOTE | 2019-02-14 10:13 | BI_ITS ---
MAMMOGRAPHY - BILATERAL SCREENING REASON FOR EXAM: Female, 63 years old. Routine annual screening examination. PERTINENT HISTORY: Aunt with breast cancer. History of bilateral stereotactic breast biopsies. TECHNIQUE: Digital bilateral breast carlos (3D mammographic acquisition) in the CC and MLO projections. 2-D mediolateral oblique (MLO) and craniocaudad (CC) views of both breasts were obtained. CAD: Full Field Digital Mammography with Computer Added Detection was performed. COMPARISON: Comparison is made with prior study dated December 14, 2017 and March 16, 2016. FINDINGS: Breast Composition: There are scattered areas of fibroglandular density. There are no dominant masses or suspicious calcifications. Stable appearance of the benign-appearing bilateral axillary lymph nodes. A tissue clip marker is seen in the central retroareolar region of the right breast. No other significant abnormalities are identified. There has been no significant change since the prior study. BI/SCREEN MAMM (CAD) W/CARLOS BILAT IMPRESSION: Stable bilateral screening mammogram. Yearly follow-up mammogram recommended. (A) ASSESSMENT CATEGORY: BIRADS Category 2: Benign. A letter regarding these results will be sent to the patient by the facility within 30 days. Approximately 10% of breast cancers are not detected by mammography. A normal mammogram should not delay biopsy of a clinically suspicious abnormality. [id number] Electronically Signed: Joshua Mota, at 9:47 EDT , Service support ,
== END ==
PROVIDERS: Family Provider Nurse Practitioner; PCP Nurse Practitioner; Referring Provider Obstetrics & Gynecology; Visit Provider Obstetrics & Gynecology
DX: Z12.31 Encounter for screening mammogram for malignant neoplasm of breast (principal)
CPT/HCPCS: 77063; 77067

== ENCOUNTER 2019-04-14 07:52 | Day surgery (SDC) | payer OTHER, SELFPAY ==
[2018-08-07 18:59] VITALS: BMI 37.5
[2019-04-14 08:25] VITALS: BP 141/90; PULSE 89; RESP 16; TEMP 36.3; O2SAT 98; BMI 37.7
--- NOTE | 2019-04-14 08:48 | H&P.OPEN ---
History of Present Illness Date of Admission: 04/14/19 The patient is a 63 year old F who presents for screening colonoscopy. Her last colonoscopy was 13 years ago and was reportedly negative. Past Medical/Surgical History - Planned Operation Planned Operative Procedure/s: cscope open access Date of Operative Procedure: 04/14/19 Permit Signed: No S.O.S: No Is This Patient Having a Total Joint: No - Previous Hospitalizations/Surgeries HX Hospitalizations: No HX of Surgeries: TONSILLECTOMY. GALLBLADDER. DIAGNOSTIC LAP. D&C X2. COLONOSCOPY. [facility] bso posterior repair 07/2018 Any Problems With Anesthesia: Yes - N/V You/Your Family Experience Fever (Hyperthermia) With Anes: No Cholinesterase deficiency: No - Cardiovascular Hx Chest Pain within Last 2 months: No Hx of Irregular Heartbeat and/or Afib: No Hx Heart Attack: No Hx Congestive Heart Failure: No Hx Rheumatic Fever: No Hx Hypertension: No Hx Internal Defibrillator: No Hx Pacemaker: No Hx Cardiac Catheterization: No Hx Cardiac Surgery/Stents/Etc.: No Hx Stress Test: No HX Edema: No Hx Pain in Legs when Walking/Leg Cramps: Yes - CRAMPS PRN - Respiratory Chronic Cough: No HX of Shortness of Breath: Yes - SLIGHTLY SOB WITH 2 FLIGHTS OF STAIRS Hoarseness: No Hx Chronic Obstructive Pulmonary Disease (COPD): No Hx Asthma: No Hx Emphysema: No Hx Sleep Apnea: No Hx Oxygen Use at Home: No Hx Respiratory Tract Infection/Cold (presently): No Do You Snore Loudly (louder than talking or can be heard): Yes Do You Often Feel Tired/ Fatigued/ Sleepy Dring Daytime?: No Has Anyone Observed You Stop Breathing During Sleep?: No Result (for STOP score): Negative Hx Smoking: No Smoking Status: Never smoker - Gastrointestinal Hx Gastroesophageal Reflux: No - OCCAS HEARTBURN, OTC PRN Hx Gastrointestinal Disorders: No Hx Gastrointestinal Bleed: No Hx Ulcer: No Hx Hiatal Hernia: No Difficulty Chewing/Swallowing: No Recent Onset of Swallowing Problems: No Special diet followed at home: No Hx Unplanned Weight Loss of 20#: No HX Unplanned Weight Gain of 20#: No - Neurological Hx Seizures: No HX Syncope/Blackout Spells/Unconsciousness: No Hx CVA/Stroke: No Hx Transient Ischemic Attacks (TIA): No Hx Multiple Sclerosis: No Hx Parkinson's Disease: No Hx Head/Neck Injury: No Hx Headaches: No Hx Back Injury/Pain: No Recent Onset of Speech Difficulty: No Restless Legs: No Does patient have nerve stimulator: No Patient instructed to have device shut off: No Rep notified?: No - Blood Disorder Hx Leukemia: No Bleeding Tendencies: Yes - EASY BRUISING Hx Deep Vein Thrombosis: No Hx High Cholesterol: No Blood Transmitted Disease: No Hx Hepatitis: No Hx Cirrhosis: No Hx Anemia: No Hx Blood Disorders: No - Reproduction Is Patient Lactating: No Hx Hysterectomy: Yes Hx Tubal Ligation: Yes Are You Post Menopause: Yes - Genitourinary Hx Renal Disease: No - Musculoskeletal Hx Arthritis: Yes - OA Hx Rheumatoid Arthritis: No - PSORIASIS LEGS BELOW KNEE Hx Gout: No Recent Onset of an Orthopedic Problem: No - Endocrine Hx Diabetes: No Thyroid Disease: No Hx Steroid Therapy: No - . - Psycho/Social Hx Substance Use: No Hx Alcohol Use: Yes - OCCASIONAL Hx Anxiety: No Hx Depression: No Mental Illness: No Hx Dementia: No - Miscellaneous Hx Cancer: Yes - SKIN Recent Exposure to Contagious Disease: No Active MRSA: No Hx of C-Diff: No Any Loose Teeth: No Allergies apremilast [From [facility]] Allergy (Verified 04/14/19 08:24) Rash - Discharge Is Pt Admitted From a Senior Care, or a Fdc: No Who Could Help: family After D/C, Where Do you Plan to Go: Return Home - From the PAT History Number of Risk Factors: 4 - Physical Exam Vitals/I&O's: Vital Signs Temp Pulse Resp BP Pulse Ox 97.4 F L 89 16 141/90 H 98 04/14/19 08:25 04/14/19 08:25 04/14/19 08:25 04/14/19 08:25 04/14/19 08:25 Oxygen Delivery Method Room Air Weight: 248 lb 3.2 oz Body Mass Index (BMI) 37.7 General: Alert, Oriented x3 Neck: Supple, No JVD Lungs: Clear to auscultation Cardiovascular: Regular rate, Regular Rhythm, No murmurs Abdomen: Bowel Sounds Present, Soft, Non Tender, Non-Distended Assessment/Plan Assessment is screening colonoscopy. Plan: We will be to perform a colonoscopy. Surgery Risks - Colonoscopy Risks Include but are not Limited To: Risks include but are not limited to: Bleeding, perforation requiring further surgery, inability to complete colonoscopy requiring barium enema.
[2019-04-14] MEDS: Lactated Ringers 1,000 ML 100 ML IV (08:51)
[2019-04-14 09:19] VITALS: BP 114/74; BP 141/90; PULSE 60; RESP 16; TEMP 36.3; O2SAT 95
--- NOTE | 2019-04-14 09:23 | OP.COLON_ITS ---
Patient Name: Svetlana Jhaveri Procedure Date: 04/14/2019 8:45 AM Date of : 1955 Age: 63 Procedure: Colonoscopy Indications: Screening for colorectal malignant neoplasm Providers: Abdullahi Orellana MD Referring MD: Kristan Soni NP Medicines: See the Anesthesia note for documentation of the administered medications Patient Profile: This is a 63 year old female. Refer to note in patient chart for documentation of history and physical. Last Colonoscopy: more than 10 years ago. Complications: No immediate complications. Procedure: Pre-Anesthesia Assessment: - Prior to the procedure, a History and Physical was performed, and patient medications and allergies were reviewed. The patient's tolerance of previous anesthesia was also reviewed. The risks and benefits of the procedure and the sedation options and risks were discussed with the patient. All questions were answered, and informed consent was obtained. Prior Anticoagulants: The patient has taken no previous anticoagulant or antiplatelet agents. ASA Grade Assessment: II - A patient with mild systemic disease. After reviewing the risks and benefits, the patient was deemed in satisfactory condition to undergo the procedure. After I obtained informed consent, the scope was passed under direct vision. Throughout the procedure, the patient's blood pressure, pulse, and oxygen saturations were monitored continuously. The adult colonoscope was introduced through the anus and advanced to the cecum, identified by appendiceal orifice and ileocecal valve. The colonoscopy was performed without difficulty. The patient tolerated the procedure well. The quality of the bowel preparation was good. Scope In: 9:03:08 AM Scope Withdrawal Time 0 hours 6 minutes 12 seconds Scope Out: 9:14:05 AM Total Procedure Duration Time 0 hours 10 minutes 57 seconds Findings: Scattered small and large-mouthed diverticula were found in the entire colon. No biopsies or other specimens were collected for this exam. The exam was otherwise without abnormality on direct and retroflexion views. Impression: - Diverticulosis in the entire examined colon. No specimens collected. - The examination was otherwise normal on direct and retroflexion views. Recommendation: - Discharge patient to home. - Resume previous diet. - Continue present medications. - Repeat colonoscopy in 10 years for screening purposes. - Return to primary care physician (date not yet determined). Procedure Code(s): --- Professional --- 49272, Colonoscopy, flexible; diagnostic, including collection of specimen(s) by brushing or washing, when performed (separate procedure) Diagnosis Code(s): --- Professional --- Z12.11, Encounter for screening for malignant neoplasm of colon K57.30, Diverticulosis of large intestine without perforation or abscess without bleeding CPT copyright 2017 [employer]. All rights reserved. The codes documented in this report are preliminary and upon furnace combination analyst review may be revised to meet current compliance requirements. MD Abdullahi Luque MD 04/14/2019 9:23:05 AM This report has been signed electronically. Number of Addenda: 0 Note Initiated On: 04/14/2019 8:45 AM
[2019-04-14 09:25] VITALS: BP 125/80; BP 141/90; PULSE 60; RESP 16; O2SAT 95
[2019-04-14 09:30] VITALS: BP 141/90; BP 92/80; PULSE 62; RESP 16; O2SAT 94
[2019-04-14 09:35] VITALS: BP 111/94; BP 141/90; PULSE 61; RESP 16; TEMP 36.2; O2SAT 95
[2019-04-14 09:53] VITALS: BP 141/90
== END 2019-04-14 10:20 | disposition home or self-care (01) ==
LOC: EN 07:52 → AC 07:53
PROVIDERS: Family Provider Nurse Practitioner; PCP Nurse Practitioner; Referring Provider Nurse Practitioner; Visit Provider Surgery
PROC: 0DJD8ZZ Inspection of Lower Intestinal Tract, Via Natural or Artificial Opening Endoscopic (ICD-10-PCS; CPT 45378; principal; 2019-04-14 08:40)
DX: Z12.11 Encounter for screening for malignant neoplasm of colon (principal); K57.30 Diverticulosis of large intestine without perforation or abscess without bleeding; L40.9 Psoriasis, unspecified; Z85.828 Personal history of other malignant neoplasm of skin; Z78.0 Asymptomatic menopausal state
CPT/HCPCS: 45378; J7120; J2405

== ENCOUNTER → 2020-02-23 10:00 | Outpatient (CLI) | payer MEDICARE, OTHER, SELFPAY ==
[2020-02-23 11:12] LABS: Absolute Neutrophil Count 3.2 X10^3/uL (2.0-7.7); Basophil# 0.03 X10^3/uL; Basophil% 0.6 % (0-1); Eosinophil# 0.12 X10^3/uL; Eosinophils% 2.2 % (0-5); Hemoglobin 13.8 g/dL (12.0-15.0); Lymphocyte % 29.7 % (19-41); Mean Corp Hgb Conc 30.7 g/dL (32-36); Mean Corpuscular Hgb 26.6 pg (27.0-32.0); Mean Corpuscular Volume 86.9 fL (81-99); Mean Platelet Vol. 9.1 fl (6.2-12.0); Monocyte% 7.4 % (0-10); NRBC Flagged by Analyzer 0 % (0-5); Neutrophil # 3.23 X10^3/uL (2.7-7.7); Neutrophil % 59.9 % (47-70); Platelet Count 266 K/mm3 (150-450); RBC Distribution Width CV 15.7 % (11.6-14.6); RBC Distribution Width SD 50.3 fl (35.1-43.9); Red Blood Count 5.18 M/mm3 (4.2-5.4); White Blood Count 5.4 K/mm3 (4.4-11.0)
[2020-02-23 12:19] LABS: Anion Gap 4 (5-15); BUN 19 mg/dL (7-18); BUN/Creat Ratio 17.4 RATIO (10-20); Calcium,Total 8.9 mg/dL (8.5-10.1); Chloride 105 mmol/L (98-107); Creatinine, Serum 1.09 mg/dL (0.55-1.02); EST Glomerular Filtration Rate 54 mL/min (>60); Est Glom Filt Rate - Afr Amer 65 mL/min (>60); Glucose 94 mg/dL (74-106); Potassium 4.6 mmol/L (3.5-5.1); Sodium Level 136 mmol/L (136-145)
[2020-02-25 08:16] LABS: Vitamin D,25 Hydroxy 52.4 ng/mL
[2020-02-26 06:07] LABS: QNTFERON TB Mitogen Value > 10.00 IU/mL (.); QNTFERON TB Nil Value 0.02 IU/mL (.); QNTFERON TB1+ Ag Value 0.03 IU/mL (.); QNTFERON TB2+ Ag Value 0.02 IU/mL (.)
[2020-02-26 14:39] LABS: QNTIFERON TB Positive Criteria Negative (Negative)
== END ==
PROVIDERS: PCP Nurse Practitioner; Referring Provider Physician Assistant; Visit Provider Physician Assistant
DX: L40.0 Psoriasis vulgaris (principal)
CPT/HCPCS: 36415; 80048; 82306; 85025; 86480

== ENCOUNTER 2020-06-08 08:00 | Outpatient (RCR) | payer MEDICARE, OTHER, SELFPAY | END 2020-06-08 23:59 | LOC: IMMUN 08:00 | PROVIDERS: PCP Nurse Practitioner; Visit Provider Family Medicine | DX: Z23 Encounter for immunization (principal) | CPT/HCPCS: 0011A; 0012A; 91301 ==

== ENCOUNTER → 2020-10-14 07:54 | Outpatient (CLI) | payer MEDICARE, OTHER, SELFPAY ==
--- NOTE | 2020-10-14 07:57 | BI_ITS ---
MAMMOGRAPHY - BILATERAL SCREENING REASON FOR EXAM: Female, 65 years old. Routine annual screening examination. PERTINENT HISTORY: Aunt with breast cancer. History of prior bilateral stereotactic breast biopsies. TECHNIQUE: Digital bilateral breast carlos (3D mammographic acquisition) in the CC and MLO projections. 2-D mediolateral oblique (MLO) and craniocaudad (CC) views of both breasts were obtained. CAD: Full Field Digital Mammography with Computer Added Detection was performed. COMPARISON: Comparison is made with prior study dated 02/14/2019 and 12/14/2017. FINDINGS: Breast Composition: There are scattered areas of fibroglandular density. There are no dominant masses or suspicious calcifications. A tissue clip marker is seen in the central retroareolar region of the right breast. No other significant abnormalities are identified. There has been no significant change since the prior study. BI/SCRN MAMM (CAD)W/CAROLS BILAT IMPRESSION: Stable bilateral screening mammogram. Yearly follow-up mammogram recommended. (A) ASSESSMENT CATEGORY: BIRADS Category 2: Benign. A letter regarding these results will be sent to the patient by the facility within 30 days. Approximately 10% of breast cancers are not detected by mammography. A normal mammogram should not delay biopsy of a clinically suspicious abnormality. [id number] Electronically Signed: Joshua Mota MD at 9:38 EDT , Service support ,
== END ==
PROVIDERS: PCP Nurse Practitioner; Referring Provider Obstetrics & Gynecology; Visit Provider Obstetrics & Gynecology
DX: Z12.31 Encounter for screening mammogram for malignant neoplasm of breast (principal)
CPT/HCPCS: 77063; 77067

== ENCOUNTER → 2021-12-01 | Outpatient (CLI) | payer MEDICARE, OTHER, SELFPAY ==
--- NOTE | 2021-12-01 10:15 | BI_ITS ---
MAMMOGRAPHY - BILATERAL SCREENING REASON FOR EXAM: Female, 66 years old. Routine annual screening examination. PERTINENT HISTORY: Aunt with breast cancer. History of prior bilateral stereotactic breast biopsies. TECHNIQUE: Digital bilateral breast carlos (3D mammographic acquisition) in the CC and MLO projections. 2-D mediolateral oblique (MLO) and craniocaudad (CC) views of both breasts were obtained. CAD: Full Field Digital Mammography with Computer Added Detection was performed. COMPARISON: Comparison is made with prior study dated 10/14/2020 and 02/14/2019. FINDINGS: Breast Composition: There are scattered areas of fibroglandular density. There are no dominant masses or suspicious calcifications. Stable benign-appearing bilateral axillary lymph nodes. A tissue clip marker is seen in the central retroareolar region of the right breast. No other significant abnormalities are identified. There has been no significant change since the prior study. BI/SCRN MAMM (CAD)W/CARLOS BILAT IMPRESSION: Stable bilateral screening mammogram. Yearly follow-up mammogram recommended. (A) ASSESSMENT CATEGORY: BIRADS Category 2: Benign. A letter regarding these results will be sent to the patient by the facility within 30 days. Approximately 10% of breast cancers are not detected by mammography. A normal mammogram should not delay biopsy of a clinically suspicious abnormality. [id number] Electronically Signed: Joshua Mota MD at 11:37 EDT ,
== END | disposition home or self-care (01) ==
LOC: OPBI 10:13
PROVIDERS: PCP Nurse Practitioner; Visit Provider Obstetrics & Gynecology
DX: Z12.31 Encounter for screening mammogram for malignant neoplasm of breast (principal)
CPT/HCPCS: 77063; 77067

== ENCOUNTER 2022-04-03 13:18 | Outpatient (CLI) | payer MEDICARE, OTHER, SELFPAY ==
[2022-04-05 14:09] LABS: QNTFERON TB Mitogen Value > 10.00 IU/mL (.); QNTFERON TB Nil Value 0 IU/mL (.); QNTFERON TB1+ Ag Value 0 IU/mL (.); QNTFERON TB2+ Ag Value 0 IU/mL (.)
[2022-04-05 16:08] LABS: Hepatitis B Core Ab Total Negative (Negative); QNTIFERON TB Positive Criteria Negative (Negative)
== END 2022-04-03 23:59 | disposition home or self-care (01) ==
LOC: LAB 13:22
PROVIDERS: Referring Provider Physician Assistant; Visit Provider Physician Assistant
DX: L40.0 Psoriasis vulgaris (principal); Z79.899 Other long term (current) drug therapy
CPT/HCPCS: 36415; 86480; 86704

== ENCOUNTER → 2022-07-25 | Outpatient (CLI) | payer MEDICARE, OTHER, SELFPAY ==
--- NOTE | 2022-07-25 10:42 | RAD_ITS ---
INDICATION: COUGH EXAMINATION/TECHNIQUE: X-RAY - XR Chest 2 Views COMPARISON: None. FINDINGS: Subtle patchy/streaky opacities in the bilateral lower lobes Tortuous and calcified thoracic aorta. The heart is not enlarged. No pleural effusion or pneumothorax. Degenerative changes of the thoracic spine. RAD/Chest PA and Lateral IMPRESSION: Subtle patchy/streaky opacities in the bilateral lower lobes concerning for infection. Electronically Signed: Bora Tyson MD at 17:53 EST ,
== END | disposition home or self-care (01) ==
LOC: MTRAD 10:41
PROVIDERS: Referring Provider Internal Medicine Pulmonary Disease; Visit Provider Internal Medicine Pulmonary Disease
DX: R05.9 Cough, unspecified (principal); D84.9 Immunodeficiency, unspecified
CPT/HCPCS: 71046

== ENCOUNTER → 2023-04-10 | Outpatient (CLI) | payer MEDICARE, OTHER, SELFPAY ==
--- NOTE | 2023-04-10 13:03 | BI_ITS ---
MAMMOGRAPHY - BILATERAL SCREENING REASON FOR EXAM: Female, 67 years old. Routine annual screening examination. PERTINENT HISTORY: Aunt with breast cancer. History of prior bilateral stereotactic breast biopsies. TECHNIQUE: Digital bilateral breast carlos (3D mammographic acquisition) in the CC and MLO projections. 2-D mediolateral oblique (MLO) and craniocaudad (CC) views of both breasts were obtained. CAD: Full Field Digital Mammography with Computer Added Detection was performed. COMPARISON: Comparison is made with prior study dated December 01, 2021 and October 14, 2020. FINDINGS: Breast Composition: The breasts are almost entirely fatty. There are no dominant masses or suspicious calcifications. A tissue clip marker seen in the central retroareolar region of the tissue clip marker is also seen in the anterior upper central portion of the left breast. No other significant abnormalities are identified. There has been no significant change since the prior study. BI/SCRN MAMM (CAD)W/CARLOS BILAT IMPRESSION: Stable bilateral screening mammogram. Yearly follow-up mammogram recommended. (A) ASSESSMENT CATEGORY: BIRADS Category 2: Benign. A letter regarding these results will be sent to the patient by the facility within 30 days. Approximately 10% of breast cancers are not detected by mammography. A normal mammogram should not delay biopsy of a clinically suspicious abnormality. [id number] Electronically Signed: Joshua Mota MD at 13:44 EST ,
== END | disposition home or self-care (01) ==
LOC: OPBI 13:02
PROVIDERS: Referring Provider Internal Medicine; Visit Provider Internal Medicine
DX: Z12.31 Encounter for screening mammogram for malignant neoplasm of breast (principal)
CPT/HCPCS: 77063; 77067

== ENCOUNTER → 2023-08-21 | Outpatient (CLI) | payer MEDICARE, OTHER, SELFPAY ==
--- NOTE | 2023-08-21 09:05 | BD_ITS ---
STUDY: DUAL ENERGY X-RAY ABSORPTIOMETRY / DXA REASON FOR EXAM: Female, 67 years old. [id number] TECHNIQUE: Bone Mineral Density (BMD) measurements of lumbar spine and bilateral hips were obtained. COMPARISON: None. FINDINGS: Lumbar Spine (L1-L4): g/cm2 (1.128) / T-score (1.0) / Z-score (3.0) Findings are suggestive of normal bone density with a low fracture risk. Left Femur Total: g/cm2 (1.195) / T-score (2.1) / Z-score (3.5) Left Femoral Neck: g/cm2 (0.873) / T-score (0.2) / Z-score (1.9) Right Femur Total: g/cm2 (1.180) / T-score (1.9) / Z-score (3.4) Right Femoral Neck: g/cm2 (0.860) / T-score (0.1) / Z-score (1.) BD/Dexa Bone Density Study IMPRESSION: The patient is considered normal as outlined below according to [employer] (WHO) criteria with a low fracture risk. Reference Information: The T-score is the number of standard deviations above or below the standard which is normal for young adults at their peak bone mineral density. The World Health Organization (WHO) interprets the T-scores as follows: Above -1 Normal bone density Between -1 and -2.5 Osteopenia Equal to / or below -2.5 Osteoporosis As a practical clinical guideline, osteopenia may be graded as follows: Mild -1 through -1.5 Moderate -1.6 through -2.0 Severe -2.1 through -2.4 The Z-score is the number of standard deviations above or below age-matched controls. A Z-score of less than -1.5 would be considered abnormal. References: 1. NIH Osteoporosis and Related Bone Diseases www osteo.org 2. International Society for Clinical Densitometry www iscd.org 3. National Osteoporosis Foundation www nof.org Electronically Signed: Joshua Mota MD at 9:15 EDT ,
== END | disposition home or self-care (01) ==
LOC: OPBD 09:01
PROVIDERS: PCP Internal Medicine; Referring Provider Internal Medicine; Visit Provider Internal Medicine
DX: Z78.0 Asymptomatic menopausal state (principal)
CPT/HCPCS: 77080

== ENCOUNTER → 2023-12-10 | Outpatient (CLI) | payer MEDICARE, OTHER, SELFPAY ==
[2023-12-12 19:07] LABS: QNTFERON TB Mitogen Value > 10.00 IU/mL (.); QNTFERON TB Nil Value 0 IU/mL (.); QNTFERON TB1+ Ag Value 0 IU/mL (.); QNTFERON TB2+ Ag Value 0 IU/mL (.); QNTIFERON TB Positive Criteria Negative (Negative)
== END | disposition home or self-care (01) ==
PROVIDERS: PCP Internal Medicine; Referring Provider Dermatology Pediatric Dermatology; Visit Provider Dermatology Pediatric Dermatology
DX: Z79.899 Other long term (current) drug therapy (principal); L40.0 Psoriasis vulgaris; H02.30 Blepharochalasis unspecified eye, unspecified eyelid
CPT/HCPCS: 36415; 86480

== ENCOUNTER → 2024-05-08 | Outpatient (CLI) | payer MEDICARE, OTHER, SELFPAY ==
--- NOTE | 2024-05-08 07:21 | BI_ITS ---
MAMMOGRAPHY - BILATERAL SCREENING REASON FOR EXAM: Female, 68 years old. Routine annual screening examination. PERTINENT HISTORY: Aunt with breast cancer. History of remote bilateral stereotactic breast biopsies. TECHNIQUE: Digital bilateral breast carlos (3D mammographic acquisition) in the CC and MLO projections. 2-D mediolateral oblique (MLO) and craniocaudad (CC) views of both breasts were obtained. CAD: Full Field Digital Mammography with Computer Added Detection was performed. COMPARISON: Comparison is made with prior study dated April 10, 2023 and December 01, 2021. FINDINGS: Breast Composition: The breasts are almost entirely fatty. There are no dominant masses or suspicious calcifications. Stable small benign-appearing bilateral axillary lymph nodes. A tissue clip marker is once again seen in the central retroareolar region of the right breast. A tissue clip marker is also seen along the anterior upper central portion of the left breast. No other significant abnormalities are identified. There has been no significant change since the prior study. BI/SCRN MAMM (CAD)W/CARLOS BILAT IMPRESSION: Stable bilateral screening mammogram. Yearly follow-up mammogram recommended. (A) ASSESSMENT CATEGORY: BIRADS Category 2: Benign. A letter regarding these results will be sent to the patient by the facility within 30 days. Approximately 10% of breast cancers are not detected by mammography. A normal mammogram should not delay biopsy of a clinically suspicious abnormality. [id number] Electronically Signed: Joshua Mota MD at 8:44 EST ,
== END | disposition home or self-care (01) ==
LOC: OPBI 07:21
PROVIDERS: PCP Internal Medicine; Referring Provider Internal Medicine; Visit Provider Internal Medicine
DX: Z12.31 Encounter for screening mammogram for malignant neoplasm of breast (principal)
CPT/HCPCS: 77063; 77067

== ENCOUNTER → 2025-04-13 | Outpatient (CLI) | payer MEDICARE, OTHER, SELFPAY ==
--- OUTSIDE RECORDS SUMMARY | 2025-04-13 12:50 | XMS RPT_ITS | CCD ---
Author Organization [facility] Care Team Providers Care Technical Programs Manager Name Role Phone Nataliya Anglin MD Unavailable [phone] Kristan Soni Unavailable Slarb MEDICINE TECH, Kenia Unavailable Unavailable [place], Francia Unavailable Unavailable Unavailable Unavailable Nataliya Anglin MD Unavailable Michael MEDICINE TECH, Gloria Unavailable Unavailable Bonezzi, Nataliya Attending Unavailable Bonezzi, Nataliya Primary Care Unavailable Bonezzi, Nataliya Referring Unavailable Bonezzi, Nataliya Primary Care Unavailable Narcisa, Eva Referring Unavailable Eva Brewster Attending Unavailable Bonezzi, Nataliya Primary Care Unavailable Bonezzi, Nataliya Referring Unavailable Bonezzi, Nataliya Attending Unavailable Allergies Allergy Classification Reported Allergen(s) Allergy Type Date of Onset Reaction(s) Facility (4 sources) apremilast Drug Allergy 04-14-2019 [facility] (1 source) apremilast Drug Allergy 04-14-2019 [facility] Repository Medications Current Medications Medication Drug Class(es) Dates Sig (Normalized) Sig (Original) cholecalciferol 0.025 mg oral tablet (4 sources) Vitamin D Start: 02-28-2017 take 5 tablets by mouth once daily Cholecalciferol (Vitamin D3) (Vitamin D3) 1,000 UNIT tablet Active 5000 UNIT PO DAILY February 28, 2017 12:00am raNITIdine 150 mg oral tablet (4 sources) Histamine-2 Receptor Antagonist Start: 12-03-2014 take 1 tablet by mouth once daily Ranitidine (Zantac) 150 MG tablet Active 150 MG PO DAILY December 03, 2014 12:00am 1 ml ustekinumab 90 mg/ml prefilled syringe (4 sources) Interleukin-12 Antagonist, Interleukin-23 Antagonist Start: 04-11-2019 inject 90 mg by subcutaneous injection every month Ustekinumab Active 90 MG SQ EVERY MONTH April 11, 2019 1:00am every 2 months Completed/Discontinued Medications Medication Drug Class(es) Dates Sig (Normalized) Sig (Original) acyclovir 800 mg oral tablet (1 source) Herpesvirus Nucleoside Analog DNA Polymerase Inhibitor, Herpes Simplex Virus Nucleoside Analog DNA Polymerase Inhibitor, Herpes Zoster Virus Nucleoside Analog DNA Polymerase Inhibitor Start: 12-07-2014 End: 12-14-2014 take 1 tablet by mouth once daily ACYCLOVIR, 800MG (Oral Tablet) 1 (one) Tablet 5x daily for 7 days Quantity: 35 {QS} Refills: 0 Ordered: 07-Dec-2014 Kristan Soni Start : 07-Dec-2014 End : 14-Dec-2014 Inactive bifidobacterium infantis 4 mg oral capsule (1 source) Start: 12-07-2014 take 1 capsule by mouth once daily ALIGN, 4MG (Oral Capsule) 1 (one) Capsule daily for 0 days Quantity: 7 {Capsule} Refills: 0 Ordered: 07-Dec-2014 AmyKristan udran Start : 07-Dec-2014 Active estradiol 0.5 mg oral tablet (6 sources) Estrogen Start: 02-27-2023 take 1 tablet by mouth once daily estradioL 0.5 mg oral tablet 1 (one) tablet daily for 0 days Quantity: 90 {Tablet} Refills: 3 Ordered: 27-Feb-2023 Linnette JIMENEZ, Nataliya Anglin MD, Nataliya Berry Start : 27-Feb-2023 Active Start: 11-30-2014 End: 02-05-2015 take 0.5 mg by mouth once daily Estradiol (Estrace) 1 mg tablet Active 0.5 MG PO DAILY November 30, 2014 12:00am Start: 11-30-2014 take 0.5 mg by mouth once yoan y Estradiol (Estrace) 1 mg 10 Active 0.5 MG PO DAILY November 30, 2014 12:00am gabapentin 300 mg oral capsule (1 source) Anti-epileptic Agent Start: 12-07-2014 take 1 capsule by mouth twice daily GABAPENTIN, 300MG (Oral Capsule) 1 (one) Capsule bid for 0 days Quantity: 60 {Capsule} Refills: 2 Ordered: 07-Dec-2014 AmyKristan duran Start : 07-Dec-2014 Active ibuprofen 200 mg oral tablet (1 source) Nonsteroidal Anti-inflammatory Drug MOTRIN IB, 200MG (Oral Tablet) prn (200 MG) Active naproxen sodium 220 mg oral tablet (1 source) Nonsteroidal Anti-inflammatory Drug End: 12-07-2014 take 2 tablets by mouth three times daily ALEVE, 220MG (Oral Tablet) 2 tid for 0 days Refills: 0 Ordered: 07-Dec-2014 Kenia Carroll LPN End : 07-Dec-2014 Discontinued oxyCODONE hydrochloride 5 mg oral tablet (4 sources) Opioid Agonist Start: 08-07-2018 End: 08-14-2018 take 5-10 mg by mouth every six hours as needed Oxycodone Discontinued 5 - 10 MG PO EVERY 6 HOURS NEEDED 07 12August 07, 2018 12:00am August 14, 2018 12:08am predniSONE 20 mg oral tablet (1 source) Start: 01-05-2010 End: 12-07-2014 PREDNISONE, 20MG (Oral Tablet) 1 Tablet 1 a day for 5 days then 1/2 a day for 5 days for 0 days Refills: 0 Ordered: 07-Dec-2014 Kenia Carroll LPN Start : 05-Jan-2010 End : 07-Dec-2014 Discontinued progesterone 200 mg oral capsule (5 sources) Progesterone Start: 11-30-2014 End: 08-07-2018 take 200 mg by mouth once daily Progesterone Discontinued 200 MG PO DAILY November 30, 2014 12:00am August 07, 2018 1:38pm Skyrizi 150 mg/mL subcutaneous pen injector (1 source) inject 1 mg by subcutaneous injection every three months Skyrizi 150 mg/mL subcutaneous pen injector q 3 months (150 mg/mL) Active Comments: Dr. Brewster Comment on above: Dr. Brewster Problems Active Problems Problem Classification Problem Date Documented Da te Episodic/Chronic Abdominal hernia (2 sources) Inguinal hernia; Translations: [Inguinal hernia] 12-07-2014 Episodic Comment on above: left Nonspecific chest pain (2 sources) Chest pain; Translations: [Chest pain] 12-07-2014 Episodic Comment on above: think in costochondr ial area. but ERT, long carride and calf pain--need check ddimer Osteoarthritis (2 sources) Osteoarthritis of knee; Translations: [Osteoarthritis, localized, knee] 03-01-2023 Chronic Other diseases of kidney and ureters (1 source) Hydronephrosis; Translations: [Hydronephrosis, left] 12-07-2014 Episodic Comment on above: mild per CT done on 11-30 will check creat last 1.1 Other endocrine disorders (2 sources) Disorder of endocrine system; Translations: [Hormone imbalance (Renamed from Disorder of endocrine system)] 02-27-2023 Episodic Comment on above: on estrogen but stil l hotflashes and sleep disturbance. talka bout biote and not fda approved Other gastrointestinal disorders (2 sources) Abdominal mass; Translations: [Abdominal mass] 12-07-2014 Episodic Comment on above: lymph node tissue wi th reactive changes, benign, no evidence of non Hodgkins lymphomafound on CT of abd Omental mass neg Other gastrointestinal disorders (2 sources) Diarrhea; Translations: [Diarrhea] 12-07-2014 Episodic Other inflammatory condition of skin (2 sources) Psoriasis; Translations: [Psoriasis] 02-27-2023 Chronic Comment on above: narcisa on skyzri no a rthritis/ Other non-traumatic joint disorders (1 source) Multiple joint pain; Translations: [Pain in joint, multiple sites] 04-13-2015 Episodic Comment on above: ? viral and reactive . need check aso, ? gout with steak and beer on vacation, not better with prednsione and/or return then further work up. no tick bites or concern for lymes. Other nutritional; endocrine; and metabolic disorders (1 source) Obesity; Translations: [Obesity] 12-07-2014 Chronic Other nutritional; endocrine; and metabolic disorders (2 sources) Body mass index 30+ - obesity; Translations: [BMI 36.0-36.9,adult] 02-27-2023 Chronic Other screening for suspected conditions (not mental disorders or infectious disease) (3 sources) Patient encounter status; Translations: [Encounter for screening mammogram for breast cancer (Renamed from Encounter for screening mammogram for malignant neoplasm of breast)] Onset: 06-12-2024 02-27-2023 Episodic Ovarian cyst (1 source) Cyst of left ovary; Translations: [Ovarian cyst, left] 12-07-2014 Episodic Viral infection (2 sources) Postherpetic neuralgia; Translations: [HZV (herpes zoster virus) post herpetic neuralgia] 12-07-2014 Episodic Past or Other Problems Problem Classification Problem Date Documented Da te Episodic/Chronic Other aftercare (1 source) Other penitentiary (current) drug therapy; Translations: [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 (current) drug therapy] Onset: 12-31-2023 Episodic Residual codes; unclassified (1 source) Asymptomatic menopausal state; Translations: [Asymptomatic menopausal state] Onset: 08-27-2023 Episodic Unclassified (1 source) Abortions/Miscarria ges; Translations: [Abortions/Miscarri ages] 12-07-2014 Comment on above: 5 miscarriages Unclassified (1 source) Deliveries (Parity); Translations: [Deliveries (Parity)] 12-07-2014 Comment on above: 3 Unclassified (1 source) Diagnostic laproscopy 1984 12-07-2014 Unclassified (1 source) Pregnancies (); Translations: [Pregnancies ()] 12-07-2014 Comment on above: 8 Unclassified (3 sources) Unclassified (1 source) Shingles Unclassified (1 source) Hydronephrosis, left Unclassified (1 source) Ovarian cyst, left Unclassified (1 source) HZV (herpes zoster virus) post herpetic neuralgia Unclassified (1 source) Pain in joint, multiple sites (719.49) Results Test Name Value Interpretation Reference Range Facility SCRN MAMM (CAD)W/VITALIY BILATo n 05-08-2024 SCRN MAMM (CAD)W/VITALIY BILAT [facility] Imaging Services [address] [place] [address] SCRN MAMM (CAD)W/VITALIY BILAT MR#: [id number] Acct: [id number] Name: BEULAH NICHOLS Rep #: [id number] : 1955 F 68 From: Joshua mccollum MD PCP: Dr. Nataliya Anglin MD Status: [facility] Study: SCRN MAMM (CAD)W/VITALIY BILAT Date of Exam: 04/20 02/11 Exam# [id number] Ordering Dr: Nataliya Anglin MD [id number] MAMMOGRAPHY - BILATERAL SCREENING REASON FOR EXAM: Female, 68 years old. Routine annual screening examination. PERTINENT HISTORY: Aunt with breast cancer. History of remote bilateral stereotactic breast biopsies. TECHNIQUE: Digital bilateral breast vitaliy (3D mammographic acquisition) in the CC and MLO projections. 2-D mediolateral oblique (MLO) and craniocaudad (CC) views of both breasts were obtained. CAD: Full Field Digital Mammography with Computer Added Detection was performed. COMPARISON: Comparison is made with prior study dated April 10, 2023 and December 01, 2021. FINDINGS: Breast Composition: The breasts are almost entirely fatty. There are no dominant masses or suspicious calcifications. Stable small benign-appearing bilateral axillary lymph nodes. A tissue clip marker is once again seen in the central retroareolar region of the right breast. A tissue clip marker is also seen along the anterior upper central portion of the left breast. No other significant abnormalities are identified. There has been no significant change since the prior study. BI/SCRN MAMM (CAD)W/VITALIY BILAT IMPRESSION: Stable bilateral screening mammogram. Yearly follow-up mammogram recommended. (A) ASSESSMENT CATEGORY: BIRADS Category 2: Benign. A letter regarding these results will be sent to the patient by the facility within 30 days. Approximately 10% of breast cancers are not detected by mammography. A normal mammogram should not delay biopsy of a clinically suspicious abnormality. [id number] Electronically Signed: Joshua Mota MD at 8:44 EST , CC: Dr. Nataliya Anglin MD Undercar Specialist: Signed Normal [facility] Quantiferon TB-Gold+on 12-11 QFT MITOGEN GRISELDA > 10.00 Normal . [facility] Comment on above: Performed By: #### L 3400.8000 #### [facility] [address] [place], [address] QFT NIL VALUE 0 IU/mL Normal . [facility] Comment on above: Performed By: #### L 3400.8000 #### [facility] [address] [place], [address] QFT TB GOLD+ Comment Normal . [facility] Comment on above: Result Comment: Dae tiFERON-TB Gold Plus is a qualitative indirect test for M tuberculosis infection (including disease) and is intended for use in conjunction with risk assessment, radiography, and other medical and diagnostic evaluations. The QuantiFERON-TB Gold Plus result is determined by subtracting the Nil value from either TB antigen (Ag) value. The Mitogen tube serves as a control for the test. Performed By: #### L 3400.8000 #### [facility] [address] [place], [place], [id number] (447) QFT TB POS CRIT Negative Normal Negative [facility] Comment on above: Result Comment: No r esponse to M tuberculosis antigens detected. Infection with M tuberculosis is unlikely, but high risk individuals should be considered for additional testing (ATS/IDSA/CDC Clinical Practice Guidelines, 2017). The reference range is an Antigen minus Nil result of <0.35 IU/mL. The specimen received for QuantiFERON testing was incubated by the ordering institution. Specific procedures outlined in our Directory of Services and in the package insert for the QuantiFERON Gold (In Tube) test must be followed to enable for proper stimulation of cells for the production of interferon gamma. Chemiluminescence immunoassay methodology Performed at: [facility] [id number] Radar Air Traffic Controller: Thee Merrill PhD, Phone: [phone] Performed By: #### L 3400.8000 #### [facility] [address] [place], [address] QFT TB1+ AG GRISELDA 0 IU/mL Normal . [facility] Comment on above: Performed By: #### L 3400.8000 #### [facility] [address] [place], [address] QFT TB2+ AG GRISELDA 0 IU/mL Normal . [facility] Comment on above: Performed By: #### L 3400.8000 #### [facility] [address] [place], [address] Dexa Bone Density Studyon Dexa Bone Density Study [facility] Imaging Services [address] [place] [address] Dexa Bone Density Study MR#: [id number] Acct: [id number] Name: BEULAH NICHOLS Rep #: [id number] : 1955 F 67 From: Joshua mccollum MD PCP: Dr. Nataliya Anglin MD Status: [facility] Study: Dexa Bone Density Study Date of Exam: 08/21/23 Exam# [id number] Ordering Dr: Nataliya Anglin MD [id number] STUDY: DUAL ENERGY X-RAY ABSORPTIOMETRY / DXA REASON FOR EXAM: Female, 67 years old. Z780 TECHNIQUE: Bone Mineral Density (BMD) measurements of lumbar spine and bilateral hips were obtained. COMPARISON: None. FINDINGS: Lumbar Spine (L1-L4): g/cm2 (1.128) / T-score (1.0) / Z-score (3.0) Findings are suggestive of normal bone density with a low fracture risk. Left Femur Total: g/cm2 (1.195) / T-score (2.1) / Z-score (3.5) Left Femoral Neck: g/cm2 (0.873) / T-score (0.2) / Z-score (1.9) Right Femur Total: g/cm2 (1.180) / T-score (1.9) / Z-score (3.4) Right Femoral Neck: g/cm2 (0.860) / T-score (0.1) / Z-score (1.) BD/Dexa Bone Density Study IMPRESSION: The patient is considered normal as outlined below according to World Jett Organization (WHO) criteria with a low fracture risk. Reference Information: The T-score is the number of standard deviations above or below the standard which is normal for young adults at their peak bone mineral density. The World Health Organization (WHO) interprets the T-scores as follows: Above -1 Normal bone density Between -1 and -2.5 Osteopenia Equal to / or below -2.5 Osteoporosis As a practical clinical guideline, osteopenia may be graded as follows: Mild -1 through -1.5 Moderate -1.6 through -2.0 Severe -2.1 through -2.4 The Z-score is the number of standard deviations above or below age-matched controls. A Z-score of less than -1.5 would be considered abnormal. References: 1. NIH Osteoporosis and Related Bone Diseases www osteo.org 2. International Society for Clinical Densitometry www iscd.org 3. National Osteoporosis Foundation www nof.org Electronically Signed: Joshua Mota MD at 9:15 EDT Reading Location ID and State: [address] [place] [address] , Service support , CC: Dr. Nataliya Anglin MD Undercar Specialist: Signed Normal [facility] Qualitative QuantiFERON-TB g old in tube testOrdered By: Erika Westbrook on 04-03-2022 M. tuberculosis tuberculin stim IFN-g Ql (Bld) 0 IU/mL . [facility] Serum hepatitis B virus core antibody detectionOrdered By: Erika Westbrook on 04-03-2022 HBV core Ab Ql (S) Negative Negative [facility] Comment on above: Performed at: [address] [id number] Director: Thee Merrill PhD, Phone: [phone] Thin prep Papanicolaou smear with manual screeningOrdered By: Erika Westbrook on 04-03-2022 Thin prep Papanicolaou smear with manual screening Comment . [facility] Comment on above: QuantiFERON-TB Gold Plus is a qualitative indirect test forM tuberculosis infection (including disease) and isintended for use in conjunction with risk assessment,radiography, and other medical and diagnostic evaluations.The QuantiFERON-TB Gold Plus result is determined bysubtracting the Nil value from either TB antigen (Ag)value. The Mitogen tube serves as a control for the test. Thin prep Papanicolaou smear with manual screening 0 IU/mL . [facility] Thin prep Papanicolaou smear with manual screening > 10.00 IU/mL . [facility] Thin prep Papanicolaou smear with manual screening Negative Negative [facility] Comment on above: No response to M tub erculosis antigens detected.Infection with M tuberculosis is unlikely, but high riskindividuals should be considered for additional testing(ATS/IDSA/CDC Clinical Practice Guidelines, 2017). Thereference range is an Antigen minus Nil result of <0.35IU/mL.The specimen received for QuantiFERON testing was incubatedby the ordering institution. Specific procedures outlinedin our Directory of Services and in the package insert forthe QuantiFERON Gold (In Tube) test must be followed toenable for proper stimulation of cells for the productionof interferon gamma. Chemiluminescence immunoassaymethodology Renal function Panel ([address]) Ordered By: Job Tracer on 12-07-2014 Albumin [Mass/Vol] 4.3 g/dL Normal 3.6-4.8 [facility]; [facility] Work Phone: Comment on above: PATIENT NOT FASTINGP ERFORMED BY: [employer]70 BURLESQUICEOUSHugh [facility] [id number] Information: [id number] Calcium [Mass/Vol] 9.3 mg/dL Normal 8.7-10.3 [facility]; [facility] Work Phone: Comment on above: PATIENT NOT FASTINGP ERFORMED BY: [employer]6370 BURLESQUICEOUSHugh [facility] [id number] Information: [id number] Chloride [Moles/Vol] 101 mmol/L Normal 97-108 [facility]; [facility] Work Phone: Comment on above: PATIENT NOT FASTINGP ERFORMED BY: EBONY LabCoedith GuardadoEblvub5820 [facility] [id number] Information: [id number] CO2 [Moles/Vol] 23 mmol/L Normal 18-29 [facility]; [facility] Work Phone: Comment on above: PATIENT NOT FASTINGP ERFORMED BY: CB [facility] Jsdvny5399 [facility] [id number] Information: [id number] Creatinine [Mass/Vol] 0.91 mg/dL Normal 0.57-1.00 [facility]; [facility] Work Phone: Comment on above: PATIENT NOT FASTINGP ERFORMED BY: [facility] Mvyqcr6695 [facility] [id number] Information: [id number] GFR/1.73 sq M.predicted among blacks CKD-EPI (S/P/Bld) [Vol rate/Area] 79 mL/min/1.73 Normal [facility]; [facility] Work Phone: Comment on above: PATIENT NOT FASTINGP ERFORMED BY: LabCoSt. Luke's Warren HospitalUqxpoj9995 [facility] [id number] Information: [id number] GFR/1.73 sq M.predicted among non-blacks CKD-EPI (S/P/Bld) [Vol rate/Area] 69 mL/min/1.73 Normal [facility]; [facility] Work Phone: Comment on above: PATIENT NOT FASTINGP ERFORMED BY: CB [facility] Xtvsdf1036 [facility] [id number] Information: [id number] Glucose [Mass/Vol] 95 mg/dL Normal 65-99 [facility]; [facility] Work Phone: Comment on above: PATIENT NOT FASTINGP ERFORMED BY: EBONY Guardado6370 [facility] [id number] Information: [id number] Phosphate [Mass/Vol] 3.8 mg/dL Normal 2.5-4.5 [facility]; [facility] Work Phone: Comment on above: PATIENT NOT FASTINGP ERFORMED BY: EBONY Guardado6370 [facility] [id number] Information: [id number] Potassium [Moles/Vol] 4.2 mmol/L Normal 3.5-5.2 [facility]; [facility] Work Phone: Comment on above: PATIENT NOT FASTINGP ERFORMED BY: EBONY Guardado6370 [facility]St[facility] [id number] Information: [id number] Sodium [Moles/Vol] 141 mmol/L Normal 134-144 [facility]; [facility] Work Phone: Comment on above: PATIENT NOT FASTINGP ERFORMED BY: EBONY Guardado6370 MoSt[facility] [id number] Information: [id number] Urea nitrogen [Mass/Vol] 14 mg/dL Normal 8-27 [facility]; [facility] Work Phone: Comment on above: PATIENT NOT FASTINGP ERFORMED BY: EBONY Guardado6370 [facility] [id number] Information: [id number] Urea nitrogen/Creatinine [Mass ratio] 15 mg/mg Normal 11-26 [facility]; [facility] Work Phone: Comment on above: PATIENT NOT FASTINGP ERFORMED BY: EBONY Guardado6370 [facility] [id number] Information: [id number] Vital Signs Date Time Vital Sign Value Performing Clinician Facility 02-27-2023 10:20-0400 Body height 172.72 cm Gloria Rodriguez MEDICINE TECH [facility]; [facility] Work Phone: 02-27-2023 10:20-0400 Body mass index (BMI) [Ratio] 36.51 kg/m2 Gloria Rodriguez GEENA [facility]; [facility] Work Phone: 02-27-2023 10:20-0400 Body surface area Derived from formula 2.21 m2 Gloria Almeidarebeca SEAY [facility]; [facility] Work Phone: 02-27-2023 10:20-0400 Body temperature 98.1 [degF] Gloria Rodriguez GEENA [facility]; [facility] Work Phone: 02-27-2023 10:20-0400 Body weight 108.92 kg Gloria Rodriguez GEENA [facility]; [facility] Work Phone: 02-27-2023 10:20-0400 Diastolic blood pressure 86 mm[Hg] Gloriabrian Rodriguez GEENA [facility]; [facility] Work Phone: Comment on above: Patient Position: Sitting; Cuff Location : Left Arm; Cuff Size: Standard 02-27-2023 10:20-0400 Heart rate 63 /min Gloria Rodriguez GEENA [facility]; [facility] Work Phone: Comment on above: Pattern: Regular 02-27-2023 10:20-0400 Respiratory rate 16 /min Gloria Rodriguez GEENA [facility]; [facility] Work Phone: Comment on above: Pattern: Unlabored 02-27-2023 10:20-0400 SaO2% (BldA) [Mass fraction] 98 % Gloria Rodriguez GEENA [facility]; [facility] Work Phone: Comment on above: Room air 02-27-2023 10:20-0400 Systolic blood pressure 130 mm[Hg] Gloria Rodriguez GEENA [facility]; [facility] Work Phone: Comment on above: Patient Position: Sitting; Cuff Location : Left Arm; Cuff Size: Standard 12-07-2014 14:07-0400 Body temperature 97.9 [degF] Kenia Carroll LPN [facility]; [facility] Work Phone: 12-07-2014 14:07-0400 Body weight 110.45 kg Kenialorraine Carroll MEDICINE TECH [facility]; [facility] Work Phone: 12-07-2014 14:07-0400 Diastolic blood pressure 80 mm[Hg] Kenia Carroll MEDICINE TECH [facility]; [facility] Work Phone: Comment on above: Patient Position: Sitting; Cuff Location : Left Arm; Cuff Size: Standard 12-07-2014 14:07-0400 Heart rate 86 /min Kenia Carly CEVALLOSN [facility]; [facility] Work Phone: Comment on above: Pattern: Regular 12-07-2014 14:07-0400 Respiratory rate 16 /min Kenialorraine Carroll MEDICINE TECH [facility]; [facility] Work Phone: Comment on above: Pattern: Unlabored 12-07-2014 14:07-0400 SaO2% (BldA) [Mass fraction] 97 % Kenialorraine Carroll MEDICINE TECH [facility]; [facility] Work Phone: Comment on above: Room air 12-07-2014 14:07-0400 Systolic blood pressure 126 mm[Hg] Kenia Carly SEAY [facility]; [facility] Work Phone: Comment on above: Patient Position: Sitting; Cuff Location : Left Arm; Cuff Size: Standard 01-05-2010 13:23-0400 Body temperature 98.2 [degF] PILO Pereira LPN [facility]; [facility] Work Phone: Comment on above: Method: Oral 01-05-2010 13:23-0400 Body weight 107.96 kg PILO Pereira LPN [facility]; [facility] Work Phone: 01-05-2010 13:23-0400 Diastolic blood pressure 80 mm[Hg] PILO Pereira LPN [facility]; [facility] Work Phone: Comment on above: Patient Position: Sitting; Cuff Location : Left Arm; Cuff Size: Large 01-05-2010 13:23-0400 Heart rate 74 /min PILO Pereira LPN [facility]; [facility] Work Phone: Comment on above: Pattern: Regular 01-05-2010 13:23-0400 Respiratory rate 18 /min PILO Pereira LPN [facility]; [facility] Work Phone: Comment on above: Pattern: Unlabored 01-05-2010 13:23-0400 Systolic blood pressure 122 mm[Hg] PILO Pereira LPN [facility]; [facility] Work Phone: Comment on above: Patient Position: Sitting; Cuff Location : Left Arm; Cuff Size: Large Encounters Encounter Date Encounter Type Care Provider Facility Start: 05-08-2024 End: 05-08-2024 [facility] Start: 12-10-2023 End: 12-10-2023 ambulatory [employer] Facility:[facility] Start: 08-21-2023 End: 08-21-2023 ambulatory [facility] Work Phone: Start: 08-21-2023 End: 08-21-2023 Patient encounter procedure [facility] Work Phone: Start: 08-21-2023 End: 08-21-2023 ambulatory [employer] Facility:[facility] Start: 04-10-2023 End: 04-10-2023 ambulatory [facility] Work Phone: Start: 04-10-2023 End: 04-10-2023 Patient encounter procedure [facility] Work Phone: Start: 02-27-2023 End: 03-01-2023 Office outpatient visit 25 minutes Nataliya Anglin MD Work Phone: [facility] Start: 07-25-2022 End: 07-25-2022 ambulatory [facility] Work Phone: Start: 07-25-2022 End: 07-25-2022 Patient encounter procedure [facility] [place] Start: 04-03-2022 End: 11-14-2022 ambulatory [facility] Work Phone: Start: 04-03-2022 End: 04-03-2022 Patient encounter procedure [facility] Start: 12-07-2014 End: 12-07-2014 Office outpatient new 45 minutes Nataliya Anglin MD Work Phone: [facility] Start: 01-05-2010 End: 01-05-2010 Patient encounter procedure Nataliya Anglin MD Work Phone: [facility] Procedures Date Procedure Procedure Detail Performing Clinician Start: 08-21-2023 Dual energy X-ray absorptiometry Start: 07-25-2022 Plain chest X-ray Start: 08-08-2018 End: 08-08-2018 Discharge Instruction Comments: See Note; NOTES: [facility] Medical Records Department [address] [place] [address] Instructions for Home/Discharge Instructions 08/07/18 1336 MR#: [id number] Acct: [id number] Name: BEULAH NICHOLS Rep #: [id number] : 1955 62 From: Alma Fournier MD PCP: Kristan Soni NP Status: REG [facility] Discharge Diet: No Restrictions Discharge Activity: May not drive while taking narcotic pain medications., May Shower, May Take a Tub Bath Return to work on:: 09/23/18 May resume sexual activity in: 4-6 weeks Lifting Restrictions: Limit to 20 lbs or less for 4 - 6 wk to allow healing Call your doctor if you observe: Fever of 101 or Higher, Using more than one pad per hour, Chest pain, Calf discomfort, Uncontrolled pain Change Dressing in (Days):: 7 Remove Dressing in (days):: 7 Cleanse incision/area with: Soap AND Water, Keep Dressing Clean AND Dry Allergies/Adverse Reactions: Allergies apremilast [From Otezla] Allergy (Verified 08/01/18 08:35) Rash Medications to take at Discharge Estradiol [Estrace] 0.5 mg PO DAILY 11/30/14 Ranitidine [Zantac] 150 mg PO DAILY PRN 12/03/14 Cholecalciferol (VIT D3) [Vitamin D3] 5,000 unit PO DAILY 02/28/17 Aspirin [Aspirin, Baby] 81 mg PO DAILY@0800 03/14/19 Docusate Sodium [Colace] 100 mg PO BID #30 capsule 08/07/18 Naproxen [Naprosyn] 250 - 500 mg PO TID PRN PRN #30 tablet 08/07/18 Oxycodone [Oxyir] 5 - 10 mg PO Q6H PRN PRN 7 Days #20 tablet 08/07/18 Polyethylene Glycol 3350 [Miralax] 17 gm PO DAILY PRN #14 packet 08/07/18 The following prescriptions were given: Oxycodone [Oxyir] 5 - 10 mg PO Q6H PRN PRN 7 Days #20 tablet PRN Reason: Mod-Severe Pain (-02/27) Naproxen [Naprosyn] 250 - 500 mg PO TID PRN PRN #30 tablet PRN Reason: Mild-Mod Pain (-09/27) Polyethylene Glycol 3350 [Miralax] 17 gm PO DAILY PRN #14 packet PRN Reason: Constipation Docusate Sodium [Colace] 100 mg PO BID #30 capsule Orders to be completed after discharge: Type AND Screen Time Frame: 08/01/18, Facility: [facility], Location: Laboratory 12 Lead EKG [CVS] Time Frame: 08/01/18, Facility: [facility], Location: Cardiovascular Services Partial Thromboplast Time Time Frame: 08/01/18, Location: Laboratory Basic Metabolic Profile (BMP) Time Frame: 08/01/18, Location: Laboratory CBC-Complete Blood Cnt No Diff Time Frame: 08/01/18, Location: Laboratory Liver Profile Time Frame: 08/01/18, Location: Laboratory Prothrombin Time w/INR Time Frame: 08/01/18, Location: Laboratory Primary Care Physician: Kristan Soni NP-C [Primary Care Provider] - Test Results: Test results from this visit will be discussed in further detail at your follow-up appointment, if applicable. Please Follow Up With: Alma Fournier MD - [phone] When: in 2 wk for postop appointment 08/08/18 0813 <Electronically signed by Alma Fournier MD> Date Alma Fournier MD CC: Kristan Soni NP Signed Nataliya Anglin MD Work Phone: Start: 08-08-2018 End: 08-08-2018 Operative Report Comments: See Note; NOTES: [facility] Medical Records Department [address] [place] [address] Operative Report 08/07/18 1351 MR#: [id number] Acct: [id number] Name: BEULAH NICHOLS Rep #: [id number] : 1955 62 From: Alma Fournier MD PCP: Kristan Soni NP Status: REG [facility] Y Location: [place] [address]-1 Report of Operation Date of Procedure: 08/07/18 Pre-Operative Diagnosis: Postmenopausal bleeding. Persistent (stable adnexal cyst). Rectocele Post-Operative Diagnosis: Same Surgery/Procedure Performed:: LAVH, BSO, posterior repair Description of Surgical Findings:: Urine output: 130 cc Irrigation: 400 cc Findings: On exam under anesthesia, the cervix appears well supported, minimal descensus. A large rectocele was noted, prolapsing through the introitus. At Laparoscopy: the uterus is normal appearing. There are normal appearing fallopian tubes and ovaries bilaterally. Gross inspection of the bowel , omentum and liver edge are WNL. PATH: Uterus, bilateral fallopian tubes and ovaries, and strips of vaginal epithelium. Narrative account: After the risks, benefits and alternatives of the procedure were reviewed with the patient , informed consent was obtained. The patient was taken to the Operating room with an IV running . She was positioned in the dorsal supine position on the operating table and given general anesthesia. Once asleep she was positioned to the dorsal lithotomy position with the arms tucked at the sides and prepped and draped in the usual sterile fashion. A Horne catheter was inserted to drain the bladder. The weighted speculum was placed into the vagina and a single tooth tenaculum was placed at the cervix. A Taryn cannula was inserted into the cervix and secured into placed with the single - toothed tenaculum. Attention was then turned to the anterior abdominal wall. the tobacco sieve operator's gloved were changed and skin incisions were created at the infraumbilical and suprapubic skin and at a point approximately intermediate between the suprapubic and infraumbilical skin incisions. Local anesthesia was used to infiltrate the skin where the trocar incision sites were created. A vertical 5 mm infraumbilical skin incision , a transverse 5 mm suprapubic incision and an transverse 5 mm midline incision were created. A Veress needle was inserted in to the peritoneal cavity at the infraumbilical skin incision while maintaining upward traction of the anterior abdominal wall at the umbilicus. There was free drop of saline, free flow of CO2 and low opening pressure noted. Once the intraabdominal pressure had reached approximately 15 mm HG, the Veress needle was removed and a bladeless 5 mm trocar was inserted into the peritoneal cavity. Correct placement was confirmed using the laparoscope. Under direct visualization the other two 5 mm bladeless trocars were inserted into the peritoneal cavity. The fallopian tubes and ovaries were retracted medially and using a LigaSure device the infundibulopelvic ligament was divided at each side of the uterus. The broad ligament was then divided down to the level of the round ligament on both sides. At this point the laparoscopic portion of the case was completed. The trocars were left in place, but the instruments were removed and gas turned off. A sterile drape was used to cover the abdomen. Attention was then turned to the vaginal portion of the case. The Taryn cannula was removed and the single toothed tenaculum repositioned on the cervix. The cervical mucosal was then incised circumferentially using a knife while retracting the large rectocele. Neither the anterior or posterior cul de sac was immediately entered. A curved Cydney clamp was applied at both sides for hemostasis. The pedicles were secured, divided and suture ligated and tagged for later identification. Dissection then was initiated at the anterior cervix to enter the anterior cul se sac. The posterior cul de sac was entered eventually by sharp dissection with Eden scissors and a weighted speculum was placed into the posterior cul se sac. The uterosacral ligaments were clamped bilaterally with curved Cydney clamps and the pedicles divided and suture ligated and tagged (along with the first tagged pedicles into hemostats present) for later identification. The anterior cul de sac peritoneum was then entered by sharp dissection and a narrow Cottonwood retractor was placed into the anterior cul de sac to retract the bladder out of harm's way for the remainder of the case. Next the cardinal ligament was clamped bilaterally and divided and suture ligated. Adequate hemostasis of the pedicles were noted. The uterine arteries were clamped bilaterally , divided and suture ligated. There was continued bleeding noted (of the cuff both anterior and posterior). Dissection then continued along each side of the uterus maintaining close approximation to the uterus. Each pedicle was secured with a Cydney clamp, divided and suture ligated until ultimately the uterine fundus was reached. The superior pedicles on each side were secured with a curved Cydney clamp and the uterus with attached fallopian tubes and ovaries was surgically amputated and set aside. The superior pedicle was then suture ligated, then free tied and tagged for identification. The superior pedicles were dry. There was bleeding noted along the posterior vaginal cuff . The posterior vaginal cuff was run, reapproximating the peritoneum and posterior vaginal epithelium with a running locked suture of 1-0 Vicryl. Hemostasis improved. Several areas along the vaginal cuff were overseen with figure of with stitches of 1-0 Vicryl. There was still bleeding noted. The peritoneum was then closed with a running purse string suture of 1 Vicryl, incorporating the superior pedicles and uterosacral ligament tags. The tags appeared dry and the bleeding appeared to be external to the closed peritoneum. The vaginal cuff was then reapproximated using interrupted and figure of eight stitches of 1 Vicryl. Excellent hemostasis was noted at the vaginal cuff. At this point, Dr Andrew had been called to assist due to persistent bleeding present during the vaginal cuff closure and given the EBL consideration was given to potentially having to proceed to laparotomy. A second look laparoscopy was being performed as Dr. Andrew arrived and scrubbed in: excellent hemostasis was noted at all pedicles and at the vaginal cuff. The pelvis and abdomen were irrigated with approximately 400 cc of normal saline. Mickey was sprayed along the cuff and pedicles for additional hemostasis. Excellent hemostasis was noted . The pneumoperitoneum was reduced and all instruments and trocars were removed. The skin incisions were closed with 4-0 Monocryl in a subcuticular fashion. Sterile dressings were applied. (Dermabond and op sites). After hemostasis was assured. The posterior repair was then performed. A triangular piece of tissue was excised at the posterior vagina / perineal body and the posterior vaginal longitudinal incision was then created using Metzenbaum scissors. The linear incision was carried from the posterior introitus to approx 1 cm from the vaginal cuff repair. The vaginal epithelium was then dissected from the underlying rectovaginal septum. Lesly plication stitches of 1-0 Vicryl were then placed reducing the rectocele. The posterior vaginal mucosa was trimmed and the linear incision closed with 2-0 chromic in a running locked fashion. Vaginal packing was then inserted: 1 iodoform gauze Excellent hemostasis was noted. The Horne was attached to the Horne bag and clear yellow urine returned. The patient was returned to dorsal supine position and awakened from general anesthesia. She was then transferred to the recovery room bed in stable condition after tolerating the procedure well. Sponge, lap, needle and instrument counts correct times two. Medications given preop and intraoperatively included: Cefotetan 2 gm IV was given traveling construction superintendent to the operating room , 10 cc of 1/2 % Marcaine with epinephrine was used as a subcutaneous injection at the trocar skin incision sites, and Toradol 30 mg IV x one was given. For a complete listing of medications given preop and intraoperatively, please see the anesthesia record. freight clerk: Baudilio - Kenia Harding RN freight clerk: Kell Mora freight clerk: Sheryl Parsons Type of Anesthesia:: General - and Dr. Jacobs Anesthesiologist: Beto Naranjo Specimen's removed: Uterus, cervix, Bilateral fallopian tubes and ovaries. Vaginal epithelium Drains: Horne Estimated Blood Loss (mL): 1120 Fluids Replaced: LR - Complications none - Admit VTE Documentation VTE Present on Admission: No VTE Mechan Device Prophylaxis: SCD's VTE Pharm Prophylaxis ordered?: Yes 08/08/18 0813 <Electronically signed by Alma Fournier MD> Date Alma Fournier MD CC: Kristan Soni SCENIC ARTIST; Alma Fournier MD Signed Nataliya Anglin MD Work Phone: Start: 08-06-2018 End: 08-06-2018 History and Physical Exam Comments: See Note; NOTES: [facility] Medical Records Department [address] [place] [address] History and Physical 08/02/18 0450 MR#: [id number] Acct: [id number] Name: BEULAH NICHOLS Rep #: [id number] : 1955 62 From: Alma Fournier MD PCP: Kristan Soni NP Status: PRE [facility] Y Location: [facility] History and Physical Date of Admission: 08/07/18 Name: BEULAH NICHOLS Age: 62 Date of : 1955 PREOPERATIVE HISTORY AND PHYSICAL: On 08/01/2018, Beulah Nichols, a 62 year old female 3 0 5 0 3, presented for: -- Pre-Op Beulah is here today for her pre op appointment. Patient is scheduled for LAVH/BSO posterior repair 08/07/2018. Patient had PAT phone call from [facility] this morning prior to appointment in this office. Consents reviewed with patient and signed. Here for preop appt : planned LAVH, BSO. posterior repair and possible anterior repair. She has been on HRT and had some bleeding after forgetting to take pill. Prior EMB: Simple hyperplasia without atypia at D and C done in 2018 She has a rectocele. Minimal uterine prolapse. Prior h/o stable ovarian vs paratubal cyst. Has questions about HRT after surgery , whether to continue estradiol vs discontinue this medication. Reviewed options. States recent trial and discontinuation of Otezla for her psoriasis, due to allergic reaction. EB ALLERGIES: Otezla and Rash MEDICATIONS HISTORY: Current medications prescribed by our practice are: 1. clobetasol 0.05 % shampoo, Apply thinly to affected area daily as directed 2. estradiol 0.5 mg tablet, 1 PO QD 4. Prometrium 200 mg capsule, 1 po daily Patient is also takin. clobetasol 0.05 % topical cream, As Directed 2. Zantac 150 mg tablet, daily PAST HISTORY: Breast/Ovarian/Colon Cancers - aunt breast ca, cousins ovarian ca, daughter ovarian Infections - none Illnesses - no serious past illnesses Accidents - no injuries of consequence History of Abnormal PAPS - Denies Hospitalizations - see surgery Shingles; SURGICAL HISTORY: 1. 07/07/[address]Dan Orellana 2. 07/07/2003 laparoscopic BTO Alma Fournier M.D. 3. Tonsillectomy and adenoids at age 38 4. Laparoscopy, lap 5. 03/07/2017 Hysteroscopy, D and C Alma Fournier M.D. 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 Rectocele 2. Endometrial Hyperplasia, Unspecified 3. Postmenopausal Bleeding 4. Hormone Replacement Therapy (postmenopausal) 5. Unspecified Ovarian Cyst, Left Side PLAN BY DIAGNOSIS: 1. Postmenopausal Bleeding Prior PATH: simple hyperplasia without atypia. Advised of small chance of progression to endometrial cancer with no atypia and only simple hyperplasia, dose of Prometrium increased. Additional bleed after forgetting pill Prefers now to proceed with hysterectomy and BSO. R,B,A of [place] reviewed. All questions answered to her satsfaction. Consents signed and on chart. Reviewed anticipated preop, operative and postop recovery including activity restrictions. RTO in 2 wk for postop follow up appt. The visit was approximately 20 minutes in length with most of the time spent in discussion and counseling. 2. Unspecified Ovarian Cyst, Left Side Simple appearing follicle/cyst noted at L ovary. No free fluid CT done 11/30/16 through ED when Beulah had dx of shingles showed: 2.3 cm L adnexal cyst then also. Stable finding. Plans BSO. 3. Hormone Replacement Therapy (postmenopausal) After hysterectomy, may elect to stop HRT. If prefers to continue, recommend estradiol only as no progesterone needed Will consider options further. Discussed wean off ERT Estradiol 0.5 mg daily and if no recurrence in symptoms, discontinue med 4. Rectocele Redundancy of vaginal fong on exam. Plans posterior repair. Possible anterior repair to be determined at time of surgery Reviewed R,B,alternatives of posterior repair (possible anterior repair) 08/06/182046 <Electronically signed by Alma Fournier MD> Date Alma Fournier MD Cosign Signature: Date (if applicable) CC: Kristan Soni SCENIC ARTIST; Alma Fournier MD Signed Nataliya Anglin MD Work Phone: Start: 08-02-2018 End: 08-02-2018 12 lead ECG Comments: See Note; NOTES: [facility] Cardiovascular Services [address] [place] [address] 12 Lead EKG 08/01/18 1027 MR#: [id number] Acct: [id number] Name: BEULAH NICHOLS Rep #: [id number] : 1955 62 From: Diego Taylor MD Attending Dr: Alma Fournier MD Status: PRE [facility] Ordering Dr: Alma Fournier MD Date: 08/01/18 Location: [facility] Sex: F C Admitted: Test Reason : PREOP Blood Pressure : / mmHG Vent. Rate : 058 BPM Atrial Rate : 058 BPM P-R Int : 168 ms QRS Dur : 084 ms QT Int : 436 ms P-R-T Axes : 044 035 037 degrees QTc Int : 428 ms Sinus bradycardia Otherwise normal ECG Confirmed by DIEGO TAYLOR MD ([id number]), managing editor ENRIQUETA FALK ([id number]) on 08/02/2018 8:35:18 AM Referred By: Alma Fournier Confirmed By:DIEGO TAYLOR MD 08/02/18 0835 Date Diego Taylor MD CC: Kristan Soni NP; Alma Fournier MD Signed Nataliya Anglin MD Work Phone: Start: 12-14-2017 End: 12-14-2017 SCREENING MAMM (CAD), BILAT Comments: See Note; NOTES: [facility] Imaging Services [address] [place] [id number] SCREENING MAMM (CAD), BILAT MR#: [id number] Acct: [id number] Name: BEULAH NICHOLS Rep #: [id number] : 1955 F 62 From: Hal Isabel MD PCP: Kristan Soni NP Status: REG CLI Study: SCREENING MAMM (CAD), BILAT Date of Exam: 12/14/17 Exam# [id number] Ordering Dr: Alma Fournier MD MAMMOGRAPHY - BILATERAL SCREENING 3-D VITALIY SYNTHESIS REASON FOR EXAM: Female, 62 years old. Bilateral Screening 3-D tomosynthesis PERTINENT HISTORY: Aunt with breast cancer.. TECHNIQUE: 2-D mammograms and 3-D Vitaliy synthesis of the breast (s) were performed. CAD was performed. COMPARISON: 03/16/2016 FINDINGS: The breast composition is composed of scattered fibroglandular density. Scattered benign calcifications are seen. No dense spiculated masses or suspicious microcalcifications are identified. No architectural distortion is identified. There is no skin thickening or retraction. There has been no significant change since the prior study. BI/SCREENING MAMM (CAD), BILAT IMPRESSION: No mammographic signs of malignancy. Routine yearly mammograms recommended. ASSESSMENT CATEGORY: BIRADS Category 1: Negative. A letter regarding these results will be sent to the patient by the facility within 30 days. FOLLOW UP RECOMMENDATION: Yearly follow up mammogram recommended. (A) Approximately 10% of breast cancers are not detected by mammography. A normal mammogram should not delay biopsy of a clinically suspicious abnormality. Electronically Signed: Herb Isabel MD at 14:19 EDT , Service support , CC: Kristan Soni SCENIC ARTIST; Alma Fournier MD Undercar Specialist: Signed Nataliya Anglin MD Work Phone: Start: 03-07-2017 End: 03-07-2017 Operative Report Comments: See Note; NOTES: [facility] Medical Records Department [address] [place] [address] Operative Report 03/07/17 1522 MR#: [id number] Acct: [id number] Name: BEULAH NICHOLS Rep #: [id number] : 1955 61 From: Alma Fournier MD PCP: Kristan Soni Status: REG SD Y Location: [place] [address] Operative Report Date of Procedure: 03/07/17 Operative Report Date of Procedure: 03/07/17 - PROCEDURE: Hysteroscopy, Dilation and curettage Preoperative Diagnosis: Thickened endometrial stripe on pelvic ultrasound Postop diagnosis: Thickened endometrial stripe on pelvic ultrasound Anesthesia: MAC IV sedation Eva Hoskins CRNA 10 cc 1% lidocaine paracervical block (Monty Fournier) Surgeon: Alma Fournier MD EBL: Minimal for case Drains: Red martinez, clear yellow urine Complications: none Fluids: replacement Findings: Atrophic appearing cervix Uterus sounds to 8 cm. Large rectocele, moderate cystocele. Gr 1 uterine prolapse Fluffy appearing endometrium. Neither tubal ostia visualized No polyps noted. Narrative account After the R,B,Alternatives of the procedure were reviewed with the patient , informed consent was obtained. The patient was taken to the operating room with an IV running and placed in dorsal supine position on the operating table. She was given MAC IV sedation and repositioned to the dorsal lithotomy position and prepped and draped in the usual sterile fashion. A large rectocele was noted. Gr 1 uterine prolapse. A large graves speculum was placed into the vagina and the cervix was brought into view. The cervix was atrophic appearing . A 10 cc paracervical block of 1% lidocaine was instilled at the 2:00, 4:00, 8:00 and 10:00 positions. A single toothed tenaculum was applied to the anterior lip of the cervix. The cervix was then gently probed and sequentially dilated to allow admission of the hysteroscope into the endometrial cavity. The initial set up gave a suboptimal picture, and the equipment was changed out. The hysteroscopy was performed with findings noted as above. There was fluffy appearing endometrium throughout the uterus. The tubal ostia could not be visualized. A sharp curettage was performed and the tissue was withdrawn and set aside for later pathology review. Good crei was noted in all quadrants. Excellent hemostasis was noted. The single toothed tenaculum was removed from the cervix and a RayTec was used to remove any remaining tissue and blood from the upper vagina and cervix. The procedure was terminated. The speculum was removed. The patient was returned to dorsal supine position and awakened from IV sedation and transferred to her recovery room bed in stable condition after tolerating the procedure well. Sponge, lap, needle and instrument counts were correct x two. medications given intraoperatively included 10 cc of 1% lidocaine without epinephrine instilled as a paracervical block. Toradol 30 mg IV x one was also given. For a complete listing of the medications given intraoperatively, see the anesthesia record. 03/07/17 1529 <Electronically signed by Alma Fournier MD> Date Alma Fournier MD CC: Kristan Soni; Alma Fournier MD Signed Nataliya Anglin MD Work Phone: Start: 03-07-2017 End: 03-07-2017 Discharge Instruction Comments: See Note; NOTES: [facility] Medical Records Department [address] [place] [address] Instructions for Home/Discharge Instructions 03/07/17 1432 MR#: [id number] Acct: [id number] Name: SIMONEBEULAH Rep #: [id number] : 1955 61 From: Alma Fournier MD PCP: Kristan Soni Status: REG [facility] Discharge Diet: No Restrictions Discharge Activity: May not drive while taking narcotic pain medications., May Shower, May Take a Tub Bath May resume sexual activity in: 1 week Additional Activity Instructions:: resume all activity as tolerated on 03/08/17 Call your doctor if you observe: Fever of 101 or Higher, Inability to have a bowel movement, Using more than one pad per hour, Uncontrolled pain Additional Instructions: You may take Aleve or ibuprofen for milder pain. Add tylenol #3 as directed for more severe pain. Allergies/Adverse Reactions: Allergies No Known Allergies Allergy (Verified 02/28/17 11:45) Medications to take at Discharge Estradiol [Estrace] 0.5 mg PO DAILY 11/30/14 Progesterone 200 mg PO DAILY 11/30/14 Ranitidine [Zantac] 150 mg PO DAILY PRN 12/03/14 Cholecalciferol (VIT D3) [Vitamin D3] 2,000 unit PO DAILY 02/28/17 Acetaminophen/Codeine #3 [Tylenol#3] 1 - 2 tablet PO Q6H PRN PRN #10 tablet 03/07/17 The following prescriptions were given: Acetaminophen/Codeine #3 [Tylenol#3] 1 - 2 tablet PO Q6H PRN PRN #10 tablet PRN Reason: Mod-Severe Pain (4-02/27) Primary Care Physician: Kristan Soni [Primary Care Provider] - Please Follow Up With: Alma Fournier MD - [phone] When: in 1-2 wks Proposed Discharge Date: 03/07/17 03/07/17 1436 <Electronically signed by Alma Fournier MD> Date Alma Fournier MD CC: Kristan Anglin MD Work Phone: Start: 03-16-2016 End: 03-16-2016 Bilat Scrn Digital AND CAD Comments: See Note; NOTES: [facility] Imaging Services [address] [place] [address] Verdana 4d Bilat Scrn Digital AND CAD MR#: [id number] Acct: [id number] Name: BEULAH NICHOLS Rep #: [id number] : 1955 F 60 From: Joshua Mota MD PCP: Kristan Soni Status: REG CLI Study: Bilat Scrn Digital AND CAD Date of Exam: 03/16/16 Exam# [id number] Ordering Dr: Alma Fournier MD MAMMOGRAPHY - BILATERAL SCREENING REASON FOR EXAM: Female, 60 years old. Routine annual screening examination. PERTINENT HISTORY: Aunt with breast cancer. Prior bilateral stereotactic biopsy. TECHNIQUE: Digital bilateral breast vitaliy (3D mammographic acquisition) in the CC and MLO projections. 2-D mediolateral oblique (MLO) and craniocaudad (CC) views of both breasts were obtained. CAD: Full Field Digital Mammography with Computer Added Detection was performed. COMPARISON: Comparison is made with prior study dated April 30, 2014 and March 12, 2013. FINDINGS: Breast Composition: There are scattered areas of fibroglandular density. There are no dominant masses or suspicious calcifications. No other significant abnormalities are identified. There has been no significant change since the prior study. BI/Bilat Scrn Digital AND CAD IMPRESSION: Stable bilateral screening mammogram. Yearly follow-up mammogram recommended. (A) ASSESSMENT CATEGORY: BIRADS Category 1: Negative. A letter regarding these results will be sent to the patient by the facility within 30 days. Approximately 10% of breast cancers are not detected by mammography. A normal mammogram should not delay biopsy of a clinically suspicious abnormality. [id number] Electronically Signed: Joshua Mota MD at 12:22 EDT Tel [phone], Service support [phone], CC: Kristan Soni; Alma Fournier MD Undercar Specialist: Signed Nataliya Anglin MD Work Phone: Start: 12-04-2014 End: 12-04-2014 Emergency Department Summary Comments: See Note; NOTES: [facility] Medical Records Department [address] [place] [address] Emergency Department Summary MR#: [id number] Acct: [id number] Name: BEULAH NICHOLS Rep #: [id number] : 1955 59 From: Dago Grossman MD PCP: Nataliya Anglin MD Status: DEP ER DATE OF SERVICE: 11/30/2014 CHIEF COMPLAINT: Left back pain. HISTORY OF PRESENT ILLNESS: The patient is having left flank pain since last evening, fairly persistent, fairly severe with nausea, vomiting about 4 or 5 times. No diarrhea. She has never had a kidney stone or family history of same. No radiation into the abdomen. No UTI symptoms, fever or chills. No history of aneurysm. Denies any chest pain, shortness of breath or other complaints. No treatment so far. She has had her gallbladder removed. She is on hormone therapy. PHYSICAL EXAMINATION: VITAL SIGNS: Stable. HEENT: Normal. Mucous membranes slightly dry. NECK: Supple, no adenopathy. HEART: Regular with normal S1, S2. LUNGS: Clear. No wheeze or rhonchi. ABDOMEN: Soft. No pain on palpation, distention or tympany. Good bowel sounds. She has mild left CVA tenderness. EXTREMITIES: No extremity cyanosis. NEUROLOGIC: Alert and oriented. No focal neurological deficits, lethargy, listlessness. She does pace little bit, but no sign of any acute changes. TREATMENT: CBC, chemistries normal. Urine showed a little bit of blood and ketones, 0-[address] scan read by radiologist as mild left hydronephrosis versus a parapelvic cyst, diverticulosis, a 2.4 x 3 cm soft tissue density in the anterior aspect of the omentum and he recommended IV oral contrast, which is being done at this time. The patient had minimal relief from Toradol 30 mg IV and Zofran 4 mg IV. She does have a normal saline hydration going at 250 mL an hour. I have added morphine 4 mg and Zofran 4 mg IV and she will be re-evaluated soon. At this point, she will be turned over to the night physicians for help with final disposition and care due to the prolonged nature of the contrast CAT scan. The patient is agreeable as well as her ____ advised. MD Renee Barreto C: Nataliya Anglin MD T: [facility] JOB: [id number] 12/04/14 1454 <Electronically signed by Dago Grossman MD> Date Dago Grossman MD CC: Nataliya Anglin MD Date Dictated: 11/30/141545 Date Transcribed: 11/30/141545 Undercar Specialist: Signed Nataliya Anglin MD Work Phone: Start: 12-03-2014 End: 12-03-2014 Biopsy/Inj or Needle Placement Comments: See Note; NOTES: [facility] Imaging Services [address] [place], [place] [id number] CAT Scan Report MR#: [id number] Acct: [id number] Name: SIMONEBEULAH Rep #: [id number] : 1955 F 59 From: Joshua Mota MD PCP: Nataliya Anglin MD Status: REG CLI Study: Biopsy/Inj or Needle Placement Date of Exam: 12/03/14 Exam# [id number] Ordering Dr: Ayush Nichols MD PROCEDURE: CT GUIDED biopsy of the omental mass. DATE: December 03, 2014. INDICATION: Female, 59 years old. The patient has an omental mass. PHYSICIAN: Joshua Mota M.D. PROCEDURE: The risks, benefits, and alternatives to the procedure were explained to the patient. The specific risk of hemorrhage , bleeding and bowel perforation requiring further treatment or intervention was detailed and accepted. Follow-up instructions were discussed with the patient as well. Written informed consent was obtained. The patient was brought into the CT suite and placed in the supine position. . An appropriate entry site was identified. The overlying skin was prepped and draped in the usual sterile fashion. 1% lidocaine was administered subcutaneously for local anesthesia. Conscious sedation was performed. The patient received 2 mg of Versed and 50 mcg of fentanyl intravenously. The patient was monitored appropriately. Under CT guidance, a total of 6 passes were performed utilizing an 18-gauge core biopsy needle. The specimens were then placed in the appropriate fluid and transported to the laboratory for analysis. Hemostasis was obtained. The patient tolerated the procedure well without immediate complications. IMPRESSION: Successful CT guided biopsy of the omental mass, as described above. Electronically Signed: Joshua Mota MD at 10:26 EDT Tel [phone], Service support [phone], CC: Nataliya Anglin MD; Ayush Nichols MD Undercar Specialist: Signed Nataliya Anglin MD Work Phone: Start: 12-02-2014 End: 12-02-2014 Emergency Department Summary Comments: See Note; NOTES: [facility] Medical Records Department [address] [place] [address] Emergency Department Summary MR#: [id number] Acct: [id number] Name: BEULAH NICHOLS Rep #: [id number] : 1955 59 From: Dlae Steven MD PCP: Nataliya Anglin MD Status: DEP ER DATE OF SERVICE: 11/30/2014 ADDENDUM: The patient was originally seen by Dr. Grossman. The patient was turned over to me for CT results. CT of the abdomen and pelvis with IV and oral contrast reveals abdominal masses involving omentum in the left upper quadrant, suspicious for neoplasm such as lymphoma or primary omental tumor or metastatic colon carcinoma or ovarian carcinoma. Biopsy and/or PET scan is recommended. There is sigmoid diverticulosis. No obstruction, abscess, or left adnexal cyst. EMERGENCY DEPARTMENT COURSE: The patient was further discussed with about her CT results as well as her , who was present, who is a local physician here. They have elected to go home. I am recommending that she tries to get with Dr. Mota, for potential CT-guided biopsy or similar and/or follow up with Dr. Junior or Dr. Cohen for oncology. They are agreeable with this plan. She will be written for pain medication. CLINICAL IMPRESSION: 1. Flank pain. 2. Abdominal/omental masses. DISPOSITION: Home. Dale Steven MD C C: Nataliya Junior DO T: [facility] JOB: [id number] 12/02/14 1619 <Electronically signed by Dale Steven MD> Date Dale Steven MD CC: Nataliya Anglin MD; Joshua Mota MD; Rios Cohen MD; Josesito Junior DO Date Dictated: 11/30/141754 Date Transcribed: 11/30/141754 Undercar Specialist: Signed Nataliya Anglin MD Work Phone: Start: 12-02-2014 End: 12-02-2014 Kidney and Bladder Comments: See Note; NOTES: [facility] Imaging Services [address] [place] [address] Ultrasound Report MR#: [id number] Acct: [id number] Name: BEULAH NICHOLS Rep #: [id number] : 1955 F 59 From: Joshua Mota MD PCP: Nataliya Anglin MD Status: REG CLI Study: Kidney and Bladder Date of Exam: 12/02/14 Exam# [id number] Ordering Dr: Ayush Nichols MD STUDY: RENAL ULTRASOUND - COMPLETE REASON FOR EXAM: Female, 59 years old. 3 day history of left flank pain. TECHNIQUE: Ultrasound evaluation of the kidneys was performed with real-time and static moody-scale imaging. COMPARISON: None. FINDINGS: RIGHT KIDNEY: Normal location of the right kidney, which is normal in size. The right kidney measures 10.9 cm x 4.4 cm x 4.1 cm. There is a normal cortex of the right kidney. The renal cortex measures 1.3 cm. There is no right renal mass or cyst. There are no right renal calculi. There is no right hydronephrosis. DISTAL RIGHT URETER: There is non-visualization of the distal right ureter. There is no demonstrated right ureterovesical junction calculus. There is a visualized right ureteral jet. LEFT KIDNEY: Normal location of the left kidney, which is normal in size. The left kidney measures 11.3 cm x 5.5 cm x 5.1 cm. There is a normal cortex of the left kidney. The renal cortex measures 1.4 cm. There is evidence of left parapelvic cysts. There are no left renal calculi. There is no left hydronephrosis. DISTAL LEFT URETER: There is non-visualization of the distal left ureter. There is no demonstrated left ureterovesical junction calculus. There is a visualized left ureteral jet. BLADDER: There is a normal wall thickness of the distended urinary bladder. There is no demonstrated mass within the urinary bladder. There are no demonstrated bladder calculi. IMPRESSION: Findings suggestive of left parapelvic cysts. Electronically Signed: Joshua Mota MD at 15:36 EDT Tel [phone], Service support [phone], CC: Nataliya Anglin MD; Ayush Nichols MD Undercar Specialist: Signed Nataliya Anglin MD Work Phone: Start: 11-30-2014 End: 12-01-2014 Discharge Instruction Comments: See Note; NOTES: [facility] Medical Records Department [address] [place] [address] Discharge Instruction 11/30/14 1751 MR#: [id number] Acct: [id number] Name: BONGDAYNEARSLANAHMET Rep #: [id number] : 1955 59 From: Dale Steven MD PCP: Nataliya Anglin MD Status: REG ER ED Disposition - Plan for ED Patient: Disposition: Home or Assisted Living Chief Complaint: Flank Pain Instructions: ED Flank Pain, Uncertain Cause, ED Cancer, New Diagnosis Prescriptions: Hydrocodone Bitart/Apap 5-325 [[place] 5/325] 1 - 2 tablet PO Q4H PRN PRN #60 tablet PRN Reason: Pain Ondansetron [Zofran Odt] 4 mg PO Q8H PRN PRN #20 tablet PRN Reason: Nausea Referrals: Nataliya Anglin MD [Primary Care Provider] - Rios Cohen MD [STAFF PHYSICIAN] - Josesito Junior DO [STAFF PHYSICIAN] - Additional Instructions: follow up with Dr Junior/Vicki. try to get with Dr Mota for biopsy if able. return with problems What to do if you have Problems For any increased pain, shortness of breath, bleeding, nausea or vomiting, chest pain, or any unexpected problems, contact your doctor. Call [facility] ([phone]) or report to the closest Emergency Room. Call 911 if necessary. 11/30/14 1753 <Electronically signed by Dale Steven MD> Date Dale Steven MD Cosigner Signature (If Indicated): Date CC: Nataliya Anglin MD Work Phone: Start: 11-30-2014 End: 11-30-2014 Abdomen/Pelvis WITH Contrast Comments: See Note; NOTES: [facility] Imaging Services [address] [place] [address] CAT Scan Report MR#: [id number] Acct: [id number] Name: AHMET NICHOLS Rep #: [id number] : 1955 F 59 From: Kieran Sutton MD PCP: Nataliya Anglin MD Status: REG ER Study: Abdomen/Pelvis WITH Contrast Date of Exam: 11/30/14 Exam# [id number] Ordering Dr: Dago Grossman MD STUDY: CT ABDOMEN AND PELVIS WITH CONTRAST REASON FOR EXAM: Female, 59 years old. Left flank pain. Abnormal noncontrast scan with possible mass RADIATION DOSAGE (If Supplied By Facility): CTDIvol = ( 18.81 ) mGy, DLP = ( 2323.94 ) mGycm TECHNIQUE: Transaxial images were obtained from the dome of the diaphragm to the symphysis pubis with oral contrast. 100ML ml of Isovue 300 contrast was administered. Sagittal and coronal images were reconstructed. COMPARISON: Noncontrast enhanced exam earlier the same day FINDINGS: The visualized lung bases are unremarkable. The visualized portions of the heart are within normal limits. Small cysts of the liver. There is non-visualization of the gallbladder, which may be secondary to either contraction or a prior cholecystectomy. Normal spleen. Normal pancreas. Normal bilateral adrenal glands. Normal right kidney. Parapelvic cysts of the left kidney. No hydronephrosis. Normal visualized stomach. Normal small intestine. There are multiple colonic diverticula consistent with diverticulosis. There is non-visualization of the appendix. Normal abdominal aorta. Normal inferior vena cava. Normal retroperitoneum. There is mass in the omentum inferior to the left lobe of the liver measuring 2.4 x 1.9 cm. There is adjacent mass measuring 1.0 cm. Normal urinary bladder. Normal visualized uterus. Left adnexal cyst measuring 2.3 cm. No free fluid in the abdomen or pelvis. Normal abdominal wall. Mild degenerative changes of the spine. IMPRESSION: Abdominal masses involving the omentum in the left upper quadrant suspicious for neoplasm such as lymphoma or primary omental tumor or metastatic colon carcinoma or ovarian carcinoma. Biopsy and/or PET scan recommended. Sigmoid diverticulosis. No obstruction or abscess. Left adnexal cyst. N.B. : The above information has been verbally conveyed by Kieran Sutton MD to Dr. Steven, covering physician, on 11/30/2014 17:29:44 (ET). Electronically Signed: Kieran Sutton MD at 17:23 EDT , Service support [phone], N.B. : The above information has been verbally conveyed by Kieran Sutton MD to Dr. Steven, covering physician, on 11/30/2014 17:29:44 (ET). CC: Nataliya Anglin MD; Dago Grossman MD Undercar Specialist: Signed Nataliya Anglin MD Work Phone: Start: 11-30-2014 End: 11-30-2014 Abdomen/Pelvis without Cont Comments: See Note; NOTES: [facility] Imaging Services [address] [place] [address] CAT Scan Report MR#: [id number] Acct: [id number] Name: AHMET NICHOLS Rep #: [id number] : 1955 F 59 From: Joshua Mota MD PCP: Nataliya Anglin MD Status: REG ER Study: Abdomen/Pelvis without Cont Date of Exam: 11/30/14 Exam# [id number] Ordering Dr: Dago Grossman MD STUDY: CT ABDOMEN AND PELVIS WITHOUT CONTRAST REASON FOR EXAM: Female, 59 years old. Left flank pain. RADIATION DOSAGE (If Supplied By Facility): CTDIvol = ( 23.65 ) mGy, DLP = ( 1234.16 ) mGycm TECHNIQUE: Transaxial images were obtained from the dome of the diaphragm to the symphysis pubis without oral contrast, and without intravenous contrast. Sagittal and coronal images were reconstructed. COMPARISON: None. FINDINGS: The visualized lung bases are unremarkable. The visualized portions of the heart are within normal limits. There are scattered well-defined hypodense nodules in both lobes of the liver suggestive of small hepatic cysts. The patient is status post cholecystectomy. Normal spleen. Normal pancreas. There is a small, circumscribed, smooth, low attenuation right adrenal mass, consistent with an adrenal adenoma. It measures 2 cm. Normal left adrenal gland. Normal right kidney. There is suggestive of either mild left hydronephrosis versus left parapelvic cysts. There is no evidence of intrarenal calculi. There is a small hiatal hernia. Normal small intestine. There is evidence of diverticular disease involving the entire colon more prominent in the sigmoid colon. The appendix is visualized and appears normal. Normal abdominal aorta. Normal inferior vena cava. There is borderline retroperitoneal lymphadenopathy with enlarged nodes no greater than 10mm in the short axis diameter. There is a 2.4 cm x 3 cm soft tissue density in the anterior aspect of the omentum just caudad to the left lobe of the liver. Adjacent to this, there are smaller lymph nodes. A repeat examination following both oral and intravenous contrast administration is recommended. Normal urinary bladder. There is a 2.6 cm cyst in the left ovary. The patient is status post bilateral tubal ligation. There is a left-sided inguinal hernia containing adipose tissue. Normal osseous structures. IMPRESSION: Mild left hydronephrosis versus parapelvic cysts. Diverticulosis of the colon. 2.4 cm x 3 cm soft tissue density in the anterior aspect of the omentum as described. A repeat CT scan with oral and intravenous contrast is recommended. Electronically Signed: Joshua Mota MD at 15:11 EDT Tel [phone], Service support [phone], CC: Nataliya Anglin MD; Dago Grossman MD Undercar Specialist: Signed Nataliya Anglin MD Work Phone: Start: 04-30-2014 End: 04-30-2014 Bilat Scrn Digital AND CAD Comments: See Note; NOTES: [facility] Imaging Services [address] [place] [address] Breast Imaging Report MR#: [id number] Acct: [id number] Name: AHMET NICHOLS Rep #: [id number] : 1955 F 58 From: Joshua Mota MD PCP: Nataliya Anglin MD Status: REG CLI Study: Bilat Scrn Digital AND CAD Date of Exam: 04/30/14 Exam# [id number] Ordering Dr: Alma Fournier MD MAMMOGRAPHY - BILATERAL SCREENING REASON FOR EXAM: Female, 58 years old. Routine annual screening examination. PERTINENT HISTORY: Aunt with breast cancer. Prior bilateral stereotactic biopsies. TECHNIQUE: Digital examination. Mediolateral oblique (MLO) and craniocaudad (CC) views of both breasts were obtained. CAD: CAD was performed on this study. COMPARISON: Comparison is made with prior study dated March 12, 2013 and July 17, 2011. FINDINGS: Breast Composition: There are scattered areas of fibroglandular density. There are no dominant masses or suspicious calcifications. No other significant abnormalities are identified. There has been no significant change since the prior study. IMPRESSION: Stable bilateral screening mammogram. Yearly follow-up recommended. (A) ASSESSMENT CATEGORY: BIRADS Category 2: Benign. A letter regarding these results will be sent to the patient by the facility within 30 days. Approximately 10% of breast cancers are not detected by mammography. A normal mammogram should not delay biopsy of a clinically suspicious abnormality. Electronically Signed: Joshua Mota MD at 10:13 EST Tel [phone], Service support [phone], CC: Nataliya Anglin MD; Alma Fournier MD Undercar Specialist: Signed Nataliya Anglin MD Work Phone: Cholecystectomy Cholecystectomy (Gall Bladder Removal) Kenia Carroll MEDICINE TECH Comment on above: age 46 H/O: surgery Tonsillectomy Kenia Carroll L PN Comment on above: age 38 Plan of Treatment Date Care Activity Detail Author Start: 04-10-2023 Screening mammography SCRN MAMM (CAD)W/VITALIY [facility] Start: 02-27-2023 Procedure Education Eprescribed prescriptions (G8553) [facility]; [facility] Work Phone: Start: 12-07-2014 Patient Education Shingles (Herpes Zoster) *: rash [facility]; [facility] Work Phone: Start: 01-05-2010 Fibrin dgradj products d-dimer quantitative D-Dimer (94576) [facility]; [facility] Work Phone: Start: 01-05-2010 Assay of blood/uric acid Uric Acid Blood (78277) [facility] Work Phone: Start: 01-05-2010 Creatine kinase total Creatine Kinase Total (83157) [facility]; [facility] Work Phone: Start: 01-05-2010 C-reactive protein C-Reactive Protein (79803) [facility] Work Phone: Start: 01-05-2010 Comprehensive metabolic panel Metabolic Panel, Comprehensive ([id number]) [facility] Work Phone: Start: 01-05-2010 Antistreptolysin o titer ANTISTREPTOLYSIN O-TITER ([id number]) [facility] Work Phone: [facility] Work Phone: [facility] Work Phone: Immunizations Immunization Date Immunization Notes Care Provider [facility] 07-06-2020 Covid (Moderna) [facility] 06-08-2020 Covid (Moderna) [facility] 02-19-2018 Influenza virus vaccine [facility] Payers Date Payer Category Payer Self-pay [id number] 2023 Medicare [id number] 2023 [id number] 2016 Unknown [facility] [id number] Unknown Unknown [id number] Unknown [id number] Unknown [id number] Social History Date Type Detail Facility Alcohol Use Alcohol Use [facility] Work Phone: Comment on above: Occasional alcohol u se 1 or 2 cups qod Unemployed not looki ng for work Exercises occasional ly , Lives with spouse Start: 04-11-2019 End: 04-11-2019 Tobacco smoking status NHIS Unknown if ever smoked [facility] Start: 08-08-2018 Non-smoker [facility] Start: 1955 Sex Assigned At Female [facility] Medical Equipment Procedure Code Equipment Code Equipment Origin al Text Equipment Identifier Dates Laparoscopy with vaginal hysterectomy MICKEY 3GRM HEMOSTAT ABS FDA Start: 08-07-2018 Laparoscopy with vaginal hysterectomy MICKEY 3GRM HEMOSTAT ABS FDA Start: 08-07-2018 Laparoscopy with vaginal hysterectomy MICKEY 3GRM HEMOSTAT ABS FDA Start: 08-07-2018 Laparoscopy with vaginal hysterectomy MICKEY 3GRM HEMOSTAT ABS FDA Start: 08-07-2018 Evaluation note Note Date & Type Note Facility Evaluation note No assessment information availa ble [facility] Work Phone: Instructions Note Date & Type Note Facility Instructions Name Patient Instructions Indication:BMI 36.0-36.9,adult Start: 3 Instruction Type:Provider Instructions for Treatment How to Access Health Information Online using Patient Portal and 3rd Green Party Apps Indication:BMI 36.0-36.9,adult Start: 3 Instruction Type:Patient Education [facility]; [facility] Work Phone: Advance Directives No Advanced Directives Records Found Advance Directive Response Recorded Date/ Time Living Will Yes April 11 9:17am Power of Business Ethics Professor Yes April 11, 2019 9:17am Advance Directive Response Recorded Date/ Time Living Will Yes April 11 10:17am Power of Business Ethics Professor Yes April 11, 2019 10:17am Family History No Family History Records FoundUnknown Family Member Name Dates Details Brother 1 Comments:prostate cancer Status:Active Brother 2 Comments:prostate cancer Status:Active Brother 3 Status:Active Daughter 1 Comments:Ally borderline ova saba cancer Status:Active Daughter 2 Comments:kavitha. PCO Status:Active Father Comments:alive 90's HTN in 8 0's, psoriasis, prostate cancer, Status:Active Mother Comments:HTN, stroke 65 yo f rom BP, Status:Active Sister 1 Comments:nonmelanoma skin ca ncer, Status:Active Chief Complaint and Reason for Visit Chief Complaint SCREENING Chief Complaint POST ALISHA Summary Purpose Additional Source Comments Goals (unrecognized section and content) Goals may be documented in a n alternate sectionGoals may be documented in an alternate sectionGoals may be documented in an alternate sectionGoals may be documented in an alternate section Care Teams (unrecognized sec tion and content) Team Status: Active Member Role Status Dates Kristan Soni SCENIC ARTIST, SCENIC ARTIST-C Family Provider Active No Primary Care Physician Primary Care Provider Active Team Status: Inactive Member Role Status Dates No Primary Care Physician Primary Care Provider Active Erika TARIQ, PA Attending Provider, Referring Pr ovider Active Team Status: Inactive Member Role Status Dates No Primary Care Physician Primary Care Provider Active Dr. Osorio Mcbride MD Attending Provider, Referrin g Provider Active Team Status: Inactive Member Role Status Dates No Primary Care Physician Primary Care Provider Active Dr. Nataliya Anglin MD Attending Provider, Referring Pr ovider Active Team Status: Active Member Role Status Dates Kristan Soni SCENIC ARTIST, SCENIC ARTIST-C Family Provider Active Dr. Nataliya Anglin MD Primary Care Provider Active Team Status: Inactive Member Role Status Dates Dr. Nataliya Anglin MD Primary Care Provi aida, Attending Provider, Referring Provider Active INFORMATION SOURCE (unrecogn ized section and content) DATE CREATED AUTHOR 06/14/2024 [facility] FOR RECORDS PERTAINING TO PATIENTS WHO ARE OR HAVE BEEN ENROLLED IN A CHEMICAL DEPENDENCY/SUBSTANCEABUSE PROGRAM, SOME INFORMATION MAY BE OMITTED. This clinical summary was aggregated from multiple sources. Caution should be exercised in using it in the provision of clinical care. This summary normalizes information from multiple sources, and as a consequence, information in this document may materially change the coding, format and clinical context of patient data. In addition, data may be omitted in some cases. CLINICAL DECISIONS SHOULD BE BASED ON THE PRIMARY CLINICAL RECORDS. [employer] [facility]. provides no warranty or guarantee of the accuracy or completeness of information in this document.
[2025-04-16 07:08] LABS: QNTFERON TB Mitogen Value > 10.00 IU/mL (.); QNTFERON TB Nil Value 0.01 IU/mL (.); QNTFERON TB1+ Ag Value 0.01 IU/mL (.); QNTFERON TB2+ Ag Value 0.02 IU/mL (.); QNTIFERON TB Positive Criteria Negative (Negative)
== END | disposition home or self-care (01) ==
LOC: MTLAB 10:14
PROVIDERS: PCP Internal Medicine; Referring Provider Dermatology Pediatric Dermatology; Visit Provider Dermatology Pediatric Dermatology
DX: L40.0 Psoriasis vulgaris (principal)
CPT/HCPCS: 36415; 86480